=== PATIENT | female | born 1990 | race African-American/Black ===

== ENCOUNTER 2024-03-29 13:53 | Emergency (ER) | payer OTHER, SELFPAY ==
[2024-03-29 14:08] VITALS: BP 108/76; PULSE 112; O2SAT 96
--- NOTE | 2024-03-29 14:24 | ED.ALCOHOL ---
HPI - Alcohol General Chief Complaint: ETOH/Substance Use Stated Complaint: ETOH, FROM DETENTION PER EMS Time Seen by Provider: 03/29/24 14:02 Source: patient and EMS Mode of arrival: EMS Limitations: no limitations History of Present Illness ED Provider: Bishnu [facility] narrative: Patient is a 33-year-old female presenting to the ED from [facility] for possible intoxication. Patient attended a medical appointment today and when she [facility], appeared intoxicated. Patient stating that her bladder is full of whiskey on arrival to ED. She denies suicidal or homicidal ideation, auditory or visual hallucinations. Denies any physical complaints. She denies recent falls or other trauma. MD complaint: alcohol intoxication Previous visits for alcohol intoxication: No Recent trauma: No Associated symptoms: denies other symptoms Treatments prior to arrival: none Related Data Allergies Allergy/AdvReac Type Severity Reaction Status Date / Time Unable to Assess Allergy Unverified 03/29/24 14:28 Review of Systems Review of Systems: As per HPI. Yes all other systems are reviewed and are negative Constitutional: Constitutional: Reports as per HPI [facility] Social History Social History Advance Directives: No Advance Directives Information Provided: No Do you have a plan to hurt others: No Plan Physical Exam ED Vital Signs: Vital Signs - 24 hr 03/29/24 14:25 03/29/24 14:30 Temperature 98.0 F 98.0 F Pulse Rate 105 H 105 H Respiratory Rate 18 18 Blood Pressure 115/74 115/74 Pulse Oximetry 96 96 Oxygen Delivery Method Room Air Room Air BMI result Body Mass Index 30.9 Vital signs have been reviewed and appear to be correct. Blood pressure normal. Heart rate slightly tachycardic. Respiratory rate normal. Temperature normal. Oxygen saturation normal. Const General: cooperative, healthy appearing and no acute distress Orientation/consciousness: oriented to person, oriented to place, oriented to time and patient oriented x3 Limitations: no limitations HENMT Head: Yes normocephalic and Yes atraumatic Ears: external ears normal General nose exam: Normal external nose present Face and sinus: Yes face symmetric Mouth: oropharynx normal and moist mucous membranes Throat: Yes uvula midline Eyes Pupils: Equal, round and reactive pupils present Neck Neck: Yes normal visual inspection and Yes supple Resp Effort & Inspection: normal respiratory effort and able to speak in complete sentences Auscultation: clear to auscultation bilaterally Cardio Rate: regular rate Rhythm: regular rhythm Heart sounds: S1 normal heart sound present and S2 normal heart sound present GI Palpation (GI): Soft to palpation and nontender Auscultation: normoactive bowel sounds General: Yes no CVA tenderness Back/Spine/Pelvis Back: no CVA tenderness Skin General skin exam: elasticity normal and turgor normal Neuro General: oriented to person, oriented to place, oriented to time, patient oriented x3, gait normal, tone normal, moves all extremities, Normal light touch and pain sensation, no focal motor deficits, CN's II-XI intact bilaterally and deep tendon reflexes 2+ bilaterally Cranial nerves: Yes Equal, round and reactive pupils present Cognition (Neuro): normal cognition Motor exam (neuro): 5/5 motor strength present throughout Extrem General: Yes full ROM, Yes no pedal edema and Yes no calf tenderness Psych Mental Status: mental status grossly normal Affect: Hostile affect present Thought process: Normal thought process present Thought content: suicidality, no homicidality and no hallucinations Medical Decision Making Medical Decision Making [facility] Narrative: Patient is a 33-year-old female presenting to the ED from [facility] for possible intoxication. On exam patient is awake, A+Ox3, VS WNL, afebrile, normal neurological exam without focal deficits, physical exam findings as above. Given reported symptoms and physical exam findings, initial differential includes alcohol or drug intoxication. Do not suspect intracranial pathology as patient is awake, alert, oriented x 3, clinically sober and denies trauma. Urine drug screen negative. Ethanol negative. Patient stable for discharge. Return for new or worsening symptoms. Differential Diagnosis Differential Diagnoses: The differential diagnosis associated with the presentation includes As per [facility] Lab Data [facility] Lab Attestation statement: I reviewed the patient's lab results. as per [facility] Labs: Lab Results 03/29/24 03/29/24 Range/Units 14:22 14:23 Urine Color Yellow Urine Appearance Clear Urine pH 6.0 (5.0-9.0) Ur Specific [place] <= 1.005 (1.005-1.025) Urine Protein Negative (Neg-Trace) mg/dL Urine Glucose (UA) Negative (Negative) mg/dL Urine Ketones Negative (Negative) mg/dL Urine Blood Negative (Negative) Urine Nitrite Negative (Negative) Ur Leukocyte Esterase Negative (Negative) Urine Opiates Screen Not Detected (Not Detect) Ur Buprenorphine Scrn Not Detected (Not Detect) ng/mL Ur Oxycodone Screen Not Detected (Not Detect) ng/mL Urine Methadone Screen Not Detected (Not Detect) ng/mL Urine Fentanyl Screen Not Detected (Not Detect) Ur Barbiturates Screen Not Detected (Not Detect) Ur Phencyclidine Scrn Not Detected (Not Detect) Ur Amphetamines Screen Not Detected (Not Detect) U Benzodiazepines Scrn Not Detected (Not Detect) Urine Cocaine Screen Not Detected (Not Detect) U Marijuana (THC) Screen Not Detected (Not Detect) External Record Review External record reviewed: Inpatient record, Office record and Outpatient record Discharge Plan Discharge Clinical Impression: Alcoholic intoxication Patient Disposition: Still a Patient Instructions: Alcohol Use Disorder (ED) Additional Instructions: You were evaluated in the emergency department today for possible intoxication. Your ethanol level was positive. Return to the emergency department with new or concerning symptoms. Print Language: Polish
[2024-03-29 14:25] VITALS: BP 115/74; PULSE 105; RESP 18; TEMP 36.7; O2SAT 96; BMI 30.9
[2024-03-29 14:28] LABS: Appearance Urine Clear; Color Urine Yellow; Glucose Urine UA Negative (Negative); Leukocyte Esterase Urine Negative (Negative); Nitrite Urine Negative (Negative); Specific Gravity - Urine <= 1.005 (1.005-1.025); Urine Blood Negative (Negative); Urine Ketones Negative (Negative); Urine Protein Negative (Neg-Trace)
[2024-03-29 14:30] VITALS: BP 115/74; PULSE 105; RESP 18; TEMP 36.7; O2SAT 96
--- NOTE | 2024-03-29 14:33 | MHC.EDTECH ---
Patient is changed over into pod attire All belongings are in C6
[2024-03-29 14:38] LABS: Amphetamine Screen Urine Not Detected (Not Detect); Barbiturates, Urine Not Detected (Not Detect); Benzodiazepines Screen Urine Not Detected (Not Detect); Buprenorphine Scr Not Detected (Not Detect); Cannabinoid Screen Urine Not Detected (Not Detect); Cocaine Screen Urine Not Detected (Not Detect); Fentanyl, urine Not Detected (Not Detect); Methadone Screen, Urine Not Detected (Not Detect); Opiate Screen Urine Not Detected (Not Detect); Oxycodone Screen Urine Not Detected (Not Detect); Phencyclidine Screen Urine Not Detected (Not Detect)
[2024-03-29 16:04] LABS: Ethanol 154 mg/dL
[2024-03-29 16:34] VITALS: RESP 16
[2024-03-29 17:28] VITALS: BP 121/74; PULSE 99; RESP 16; TEMP 36.6
== END 2024-03-29 17:31 | disposition home or self-care (01) ==
PROVIDERS: Emergency Provider Emergency Medicine
DX: F10.129 Alcohol abuse with intoxication, unspecified (principal); Y90.9 Presence of alcohol in blood, level not specified; Z51.81 Encounter for therapeutic drug level monitoring; Z79.899 Other long term (current) drug therapy; Z71.41 Alcohol abuse counseling and surveillance of alcoholic
CPT/HCPCS: 36415; 80307; 81003; 99284

== ENCOUNTER 2024-04-15 21:13 | Emergency (ER) | payer OTHER, SELFPAY ==
[2024-04-15 21:24] VITALS: BP 122/73; PULSE 104; RESP 20; TEMP 36.7; O2SAT 97; BMI 33.3
[2024-04-15 21:52] LABS: Amphetamine Screen Urine Not Detected (Not Detect); Barbiturates, Urine Not Detected (Not Detect); Benzodiazepines Screen Urine Not Detected (Not Detect); Buprenorphine Scr Not Detected (Not Detect); Cannabinoid Screen Urine Not Detected (Not Detect); Cocaine Screen Urine Not Detected (Not Detect); Fentanyl, urine Not Detected (Not Detect); Methadone Screen, Urine Not Detected (Not Detect); Opiate Screen Urine Not Detected (Not Detect); Oxycodone Screen Urine Not Detected (Not Detect); Phencyclidine Screen Urine Not Detected (Not Detect)
--- NOTE | 2024-04-15 22:40 | ED_ITS ---
HPI - Medical Clearance General Chief complaint: Medical Clearance Stated complaint: seeking medical clearance Time Seen by Provider: 04/15/24 22:33 Source: patient Mode of arrival: ambulatory Limitations: no limitations History of Present Illness ED Provider: jessie BIRCH Narrative: Patient from [facility] comes here as still noted to be very sleepy according to staff patient has been difficult to manage patient's said that she had alcohol tired denied any substance abuse Related Information Allergies Allergy/AdvReac Type Severity Reaction Status Date / Time Unable to Assess Allergy Verified 04/15/24 21:27 Review of Systems 2 Review of Systems: Yes all other systems are reviewed and are negative [facility] Social History Social History Alcohol intake: current Smoked in Last 30 Days: Yes Use of substances other than those prescribed or required for medical reasons: No Advance Directives: No Physical Exam 2 Vital Signs: Vital Signs: Last Vital Signs Temp 98.6 F 04/16/24 02:52 Pulse 89 04/16/24 02:52 Resp 16 04/16/24 02:52 BP 108/56 L 04/16/24 02:52 Pulse Ox 98 04/16/24 02:52 O2 Del Method Room Air 04/16/24 02:52 BMI result Body Mass Index 33.3 Appearance: Alert. Oriented X3. No acute distress. Very sleepy arousable to verbal command Eyes: PERRLA, No Nystagmus ENT: Pharynx normal. Oral Mucosa moist Neck: Normal inspection. Neck supple. CVS: Normal heart rate and rhythm. Pulses normal. Respiratory: No respiratory distress. Equal air entry bilateral, no wheezing/rales/rhonchi Abdomen: Soft and nontender. Bowel sounds are present, no mass palpable, no CVA tenderness Skin: Skin warm and dry. Normal skin color. Normal skin turgor. Extremities: No lower extremity edema. No calf tenderness Neuro: Oriented X 3. No motor deficit. No sensory deficit.No cerebellar signs , cranial nerves II-XII intact Medical Decision Making Medical Decision Making [facility] Narrative: Patient's alcohol level was only 101 and U tox was negative will discharge patient back to [facility] Lab Data [facility] Lab Attestation statement: I reviewed the patient's lab results. 04/16/24 00:03 04/16/24 00:03 Labs: Lab Results 04/15/24 04/16/24 Range/Units 21:33 00:03 WBC 6.9 (4.8-10.8) X10*3/uL RBC 3.49 L (4.20-5.50) X10*6/uL Hgb 9.7 L (12.0-16.0) g/dl Hct 29.7 L (37.0-47.0) % MCV 85.1 (80.0-98.0) fL MCH 27.8 (27.0-33.0) pg MCHC 32.7 (31.0-35.0) g/dl RDW 18.8 H (11.0-16.0) % Plt Count 399 (160-400) X10*3/uL MPV 9.1 L (9.4-12.3) fL Immature Gran % (Auto) 0.1 (0.0-0.4) % Neut % (Auto) 37.9 L (45-73) % Lymph % (Auto) 54.6 H (20-40) % [place] % (Auto) 5.8 (2-11) % Eos % (Auto) 1.2 (0-4) % Baso % (Auto) 0.4 (0-2) % Lymph # (Auto) 3.8 (1.2-4.9) X10*3/uL [place] # (Auto) 0.4 (0.1-1.2) X10*3/uL Eos # (Auto) 0.1 (0.0-0.4) X10*3/uL Baso # (Auto) 0.0 (0.0-0.2) X10*3/uL Abs Immat Gran (auto) 0.01 (0.00-0.03) X10*3/uL Absolute Neuts (auto) 2.6 (2.0-8.3) x10*3/uL Absolute Nucleated RBC 0.000 (0.0-0.012) X10*3/uL Nucleated RBC % (auto) 0.0 (0.0-0.2) /100WBC Sodium 140 (135-145) mmol/L Potassium 4.0 (3.3-5.1) mmol/L Chloride 109 H (96-108) mmol/L Carbon Dioxide 21 L (22-29) mmol/L Anion Gap 14 (12-20) BUN 12 (9-16) mg/dL Creatinine 0.87 (0.5-1.4) mg/dL Estim Creat Clear Calc 101.3 Estimated GFR > 60 Random Glucose 124 H (60-115) mg/dL Calcium 9.1 (8.4-10.2) mg/dL Total Bilirubin 0.2 (0.0-1.0) mg/dL AST 19 (5-31) U/L ALT 13 (0-31) U/L Alkaline Phosphatase 87 (39-117) U/L Ammonia 44 (13-55) umol/L Total Protein 6.8 (6.5-8.0) g/dL Albumin 3.8 (3.5-5.0) g/dL Beta HCG, Quant < 2 mIU/mL Urine Opiates Screen Not Detected (Not Detect) Ur Buprenorphine Scrn Not Detected (Not Detect) ng/mL Ur Oxycodone Screen Not Detected (Not Detect) ng/mL Urine Methadone Screen Not Detected (Not Detect) ng/mL Urine Fentanyl Screen Not Detected (Not Detect) Ur Barbiturates Screen Not Detected (Not Detect) Ur Phencyclidine Scrn Not Detected (Not Detect) Ur Amphetamines Screen Not Detected (Not Detect) U Benzodiazepines Scrn Not Detected (Not Detect) Urine Cocaine Screen Not Detected (Not Detect) U Marijuana (THC) Screen Not Detected (Not Detect) Ethyl Alcohol 101 mg/dL Discharge Plan Discharge Clinical Impression: Alcohol use disorder Patient Disposition: Home, Self-Care Instructions: Abuse of Alcohol (ED) Additional Instructions: Stop drinking alcohol Your alcohol level was 101mg/dl and urine tox screen was negative Print Language: Citizen [place]
--- NOTE | 2024-04-15 23:32 | PC.NURSE ---
family law legal assistant attempted to contact the supervisor decorating from [facility] to gather additional information regarding the pt's reason for being there. Per previous RN, [facility] is refusing to [facility] patient back stating she needs a higher level of care . No answer, ESTEFANY left
[2024-04-16 00:10] LABS: MANUAL DIFF FLAG NO
[2024-04-16 00:16] LABS: Basophils Percent Auto 0.4 % (0-2); Eosinophils Absolute Auto 0.1 X10*3/uL (0.0-0.4); Eosinophils Percent Auto 1.2 % (0-4); Hematocrit 29.7 % (37.0-47.0); Hemoglobin 9.7 g/dl (12.0-16.0); Imm Gran Abs Auto 0.01 X10*3/uL (0.00-0.03); Imm Gran Pct Auto 0.1 % (0.0-0.4); Lymphocytes Absolute Auto 3.8 X10*3/uL (1.2-4.9); Lymphocytes Percent Auto 54.6 % (20-40); Mean Corpuscular HGB Conc 32.7 g/dl (31.0-35.0); Mean Corpuscular Hemoglobin 27.8 pg (27.0-33.0); Mean Corpuscular Volume 85.1 fL (80.0-98.0); Mean Platelet Volume 9.1 fL (9.4-12.3); Monocytes Absolute Auto 0.4 X10*3/uL (0.1-1.2); Monocytes Percent Auto 5.8 % (2-11); Neutrophils Absolute Auto 2.6 x10*3/uL (2.0-8.3); Neutrophils Percent Auto 37.9 % (45-73); Platelet Count 399 X10*3/uL (160-400); Red Blood Count 3.49 X10*6/uL (4.20-5.50); Red Cell Distribution Width 18.8 % (11.0-16.0); White Blood Count 6.9 X10*3/uL (4.8-10.8)
[2024-04-16 00:20] LABS: Ammonia 44 umol/L (13-55)
[2024-04-16 00:28] LABS: Alanine Aminotransferase 13 U/L (0-31); Albumin Level 3.8 g/dL (3.5-5.0); Alkaline Phosphatase 87 U/L (39-117); Anion Gap 14 (12-20); Aspartate Amino Transferase 19 U/L (5-31); Bilirubin Total 0.2 mg/dL (0.0-1.0); Blood Urea Nitrogen 12 mg/dL (9-16); Calcium 9.1 mg/dL (8.4-10.2); Carbon Dioxide 21 mmol/L (22-29); Chloride 109 mmol/L (96-108); Creatinine Clr Calc Pharmacy 101.3; Estimated Glomerular Filt Rate > 60; Glucose Random 124 mg/dL (60-115); Sodium 140 mmol/L (135-145); Total Protein 6.8 g/dL (6.5-8.0)
[2024-04-16 00:32] LABS: Ethanol 101 mg/dL
[2024-04-16 00:46] LABS: HCG Quantitative < 2 mIU/mL
[2024-04-16 02:52] VITALS: BP 108/56; PULSE 89; RESP 16; TEMP 37; O2SAT 98
--- NOTE | 2024-04-16 02:54 | PC.NURSE ---
pt sleeping, able to wake up and answer question appropriately, no distress at this time. Pt awaiting a ride home from facility
[2024-04-16 03:43] VITALS: BP 108/56; PULSE 89; RESP 16; TEMP 37; O2SAT 98
== END 2024-04-16 03:30 | disposition home or self-care (01) ==
PROVIDERS: Emergency Provider Internal Medicine
DX: F10.10 Alcohol abuse, uncomplicated (principal); Y90.5 Blood alcohol level of 100-119 mg/100 ml; Z51.81 Encounter for therapeutic drug level monitoring; Z79.899 Other long term (current) drug therapy
CPT/HCPCS: 36415; 80053; 80307; 82140; 84702; 85025; 99284

== ENCOUNTER 2024-05-18 06:24 | Emergency (ER) | payer OTHER, SELFPAY ==
--- NOTE | ~2024-05-18 | XR_ITS ---
EXAMINATION: XR HIP, LEFT CLINICAL INFORMATION: pain COMPARISON: None available. TECHNIQUE: Fundal radiograph of the pelvis and frontal and frog lateral radiographs of the left hip. FINDINGS: No fracture. Alignment is anatomic. Hip joint space is maintained. Soft tissues are unremarkable. XR/XR hip LT w PEL1V IMPRESSION: Unremarkable plain radiographs of the bony pelvis and left hip. Electronically signed by: Kemar Perez MD 05/18/2024 11:32 AM [facility]
--- NOTE | 2024-05-18 06:30 | ECG_ITS ---
Test Reason : CHEST Pain Blood Pressure : / mmHG Vent. Rate : 088 BPM Atrial Rate : 088 BPM P-R Int : 136 ms QRS Dur : 086 ms QT Int : 386 ms P-R-T Axes : 057 034 023 degrees QTc Int : 467 ms Normal sinus rhythm Normal ECG No previous ECGs available Referred By: Generic ED Physician Electronically Signed By:STEPHANIE COPE
[2024-05-18 06:37] VITALS: BP 138/94; PULSE 96; O2SAT 95; BMI 36.0
[2024-05-18 06:44] VITALS: BP 117/71; PULSE 88; RESP 16; TEMP 36.5; O2SAT 99
--- NOTE | 2024-05-18 06:56 | ED_ITS ---
HPI - General Adult General Chief complaint: Extremity Problem Stated complaint: HIP PAIN Time Seen by Provider: 05/18/24 06:55 Source: patient and EMS Mode of arrival: EMS Limitations: no limitations History of Present Illness ED Provider: Kylee Nunez PA-C HPI narrative: Patient is a 33 year old assigned female at with a history of chronic trochanteric bursitis of the left hip, alcohol dependency, cocaine abuse, DM, and shiczo-affective type schizophrenia presenting to the emergency department today with left hip pain. Patient states that she heard a popping sound in her hip when she was getting into her bed and now she is having sharp pain that radiates down her left leg. Patient states that she recently saw her PCP who started her on tramadol 50mg 3 times a day for this left hip pain but she has not gotten it yet. Patient denies any dizziness, lightheadedness, abdominal pain, nausea, vomiting, fever, chills, blurry vision, double vision, loss of vision, chest pain, difficulty breathing, shortness of breath, back pain, night sweats, pain with urination, increased urinary frequency, increased urinary urgency, blood in her urine or stool, syncope or a near syncopal episode, bowel incontinence, bladder incontinence, or any other complaints at this time. Relieving factors: immobilization Exacerbating factors: movement Associated symptoms: denies other symptoms Treatments prior to arrival: none Related Data Allergies Allergy/AdvReac Type Severity Reaction Status Date / Time aspirin AdvReac Anaphylaxis Verified 05/18/24 06:41 Review of Systems Constitutional: Constitutional: Reports no additional constitutional complaints, Denies chills, Denies fever(s) and Denies night sweats Eyes: Eyes: Reports no additional eye complaints, Denies blurry vision, Denies change in vision, Denies diplopia, Denies eye discharge, Denies loss of vision and Denies eye pain ENT: Denies dizziness Cardiovascular: Cardiovascular: Reports no additional cardiovascular complaints, Denies chest pain, Denies lightheadedness, Denies Loss of Consciousness and Denies dyspnea Respiratory: Respiratory: Reports no additional respiratory complaints and Denies dyspnea Gastrointestinal: Gastrointestinal: Reports no additional gastrointestinal complaints, Denies abdominal pain, Denies melena, Denies hematochezia, Denies change in bowel habits and Denies change in stool character Genitourinary: Genitourinary: Denies hematuria, Denies urinary frequency, Denies dysuria, Denies urinary incontinence, Denies urinary hesitancy and Denies urinary urgency Musculoskeletal: Musculoskeletal: Reports no additional musculoskeletal complaints, Denies numbness and Denies tingling Comments: left hip pain Neurologic: Denies dizziness, Denies loss of vision, Denies numbness and Denies tingling Psychiatric: Psychiatric: Reports no additional psychiatric complaints Endocrine: Endocrine: Reports no additional endocrine complaints Hematologic/Lymphatic: Hematologic/Lymphatic: Reports no additional hematologic/lymphatic complaints Allergic/Immunologic: Allergic/Immunologic: Reports no additional allergic/immunologic complaints [facility] Past Medical History Attestation statement: The following information was validated with the patient. Source: old records reviewed and nursing notes reviewed Social History Social History Alcohol intake: current Advance Directives: No Advance Directives Information Provided: Yes Do you have a plan to hurt others: No Plan Physical Exam ED Vital Signs: Vital Signs - 24 hr 05/18/24 06:44 05/18/24 08:11 05/18/24 10:34 Temperature 97.7 F 97.6 F 98 F Pulse Rate 88 87 85 Respiratory Rate 16 15 16 Blood Pressure 117/71 113/69 104/72 Pulse Oximetry 99 99 97 Oxygen Delivery Method Room Air Room Air Room Air 05/18/24 11:52 Temperature 97.2 F Pulse Rate 89 Respiratory Rate 16 Blood Pressure 114/61 Pulse Oximetry 99 Oxygen Delivery Method Room Air BMI result Body Mass Index 36.0 Const General: cooperative, no acute distress, alert and awake Nutritional Appearance: well nourished Orientation/consciousness: patient oriented x3 Limitations: no limitations [facility] Head: Yes normal to inspection and Yes atraumatic Ears: hearing grossly normal bilaterally and external ears normal General nose exam: Normal external nose present, no nasal discharge noted and no epistaxis Face and sinus: Yes normal facial exam, No abrasion and No laceration Mouth: Normal oral and palatal mucosa present, no drooling and no muffled voice Eyes General: appearance normal, both eyes and all related structures Periorbital: periorbital findings normal Eyelids: Yes eyelids normal Conjunctivae: conjunctivae normal Pupils: Equal, round and reactive pupils present EOM: EOMs intact bilaterally Neck Neck: Yes normal visual inspection, Yes full ROM and Yes no lymphadenopathy Chest Chest palpation & inspection: normal inspection of the chest Resp Effort & Inspection: normal respiratory effort and able to speak in complete sentences GI Inspection: Yes normal to inspection Neuro General: patient oriented x3 and moves all extremities Cranial nerves: Yes Equal, round and reactive pupils present Cognition (Neuro): normal cognition Extrem Other: left hip pain with attempted ambulation General: Yes normal to inspection and Yes capillary refill normal Psych Appearance: grossly normal Mental Status: mental status grossly normal Affect: normal affect Attitude: cooperative Thought process: Normal thought process present Thought content: Normal thought content present Insight: Good insight present (Psych) Medications Administered Discontinued Medications Generic Name Dose Route Start Last Admin Trade Name Freq PRN Reason Stop Dose Admin Methylprednisolone Sodium Succinate 60 mg 05/18/24 10:20 05/18/24 10:29 Methylprednisolone Sod Succ 125 Mg/2 Ml Vial IM 05/18/24 10:21 60 mg ONCE ONE Administration Tramadol HCl 50 mg 05/18/24 10:20 05/18/24 10:29 Tramadol Hcl 50 Mg Tablet PO 05/18/24 10:21 50 mg ONCE ONE Administration Medical Decision Making Medical Decision Making [facility] Narrative: Patient is a 33 year old assigned female at with a history of chronic trochanteric bursitis of the left hip, alcohol dependency, cocaine abuse, DM, and shiczo-affective type schizophrenia presenting to the emergency department today with left hip pain. Patient's physical exam was unremarkable. Patient's left hip x-ray showed no acute process. I explained my physical exam findings as well as all test results to the patient. I answered all questions asked by the patient. Patient received IM Solu-medrol and PO Tramadol which, upon re- evaluation, she stated it helped her symptoms significantly. I stressed the importance of the patient taking her medication as directed (either prescribed or as the over the counter packaging recommends). I stressed the importance of the patient following up with her primary care provider. I stressed the importance of the patient returning to the emergency department immediately if her symptoms were to worsen or if she were to develop any dizziness, shortness of breath, difficulty breathing, chest pain, blurry vision, loss of vision, nausea, vomiting, abdominal pain, fever, chills, back pain, or any other complaints. When we attempted to ambulate the patient with crutch assistance - she expressed concern that her pain was continuing. Patient sat back down and a CT of the abdomen/pelvis without contrast was ordered to further evaluate the left hip. Before the patient could have the scan performed, she left the department. Differential Diagnosis Differential Diagnoses: The differential diagnosis associated with the presentation includes Acute on chronic left hip pain Admission/Observation Consideration of admission/observation: Escalation of care including admission/observation considered Patient would have been admitted to the hospital had her work up had any findings where hospital admission was appropriate and her clinical presentation warranted hospital admission. Independent Interpretation I performed an independent interpretation of an: Plain X-Ray Interpretation: My interpretation is in agreement with the radiologist's impression of this imaging study. EXAMINATION: XR HIP, LEFT CLINICAL INFORMATION: pain COMPARISON: None available. TECHNIQUE: Fundal radiograph of the pelvis and frontal and frog lateral radiographs of the left hip. FINDINGS: No fracture. Alignment is anatomic. Hip joint space is maintained. Soft tissues are unremarkable. XR/XR hip LT w PEL1V IMPRESSION: Unremarkable plain radiographs of the bony pelvis and left hip. Electronically signed by: Kemar Perez MD 05/18/2024 11:32 AM EST Dictated By: Kemar Perez MD Signed By: Electronically signed by Kemar Perez MD 05/18/24 1132 Radiology Impression Discussion of test interpretation with radiology: I have reviewed the radiologist's reading. Independent Historian Clinical information obtained from an independent historian. History obtained from or confirmed by: EMS (EMS provided additional history and confirmed the history provided by the patient.) Chronic Conditions Patient?s care impacted by: Diabetes Discharge Plan Discharge Clinical Impression: Acute hip pain Patient Disposition: Home, Self-Care Instructions: Hip Pain (ED) Additional Instructions: Follow up with your primary care provider. Return to the emergency department immediately if your symptoms worsen or if you develop any dizziness, shortness of breath, difficulty breathing, chest pain, blurry vision, loss of vision, nausea, vomiting, abdominal pain, fever, chills, back pain, or any other complaints. Referrals: [facility] [Provider Group] (Call to establish and follow up with a primary care provider. If you already have a primary care provider, please follow up with them.) [facility], [facility] [Provider Group] (Call to establish and follow up with a primary care provider. If you already have a primary care provider, please follow up with them.) [facility] [Provider Group] (Call to establish and follow up with a primary care provider. If you already have a primary care provider, please follow up with them.) Interventions: ED Discharge Assessment Last Done: 05/18/24 11:52 Print Language: Tog[place]ese
[2024-05-18 08:11] VITALS: BP 113/69; PULSE 87; RESP 15; TEMP 36.4; O2SAT 99
[2024-05-18] MEDS: traMADoL HCL 50 MG TABLET PO (10:29)
[2024-05-18] MEDS: methylPREDNISolone Sod Succ 125 MG/2 ML VIAL 60 MG IM (10:29)
[2024-05-18 10:34] VITALS: BP 104/72; PULSE 85; RESP 16; TEMP 36.6; O2SAT 97
[2024-05-18 11:52] VITALS: BP 114/61; PULSE 89; RESP 16; TEMP 36.2; O2SAT 99
--- NOTE | 2024-05-18 12:14 | PC.NURSE ---
patient stated at d/c she cant bear weight, ed provider aware, new orders placed plus PT consult
== END 2024-05-18 13:35 | disposition home or self-care (01) ==
PROVIDERS: Emergency Provider Emergency Medicine Emergency Medical Services
DX: M25.552 Pain in left hip (principal)
CPT/HCPCS: 73502; 93005; 96372; 99284; J2919

== ENCOUNTER → 2024-05-18 06:30 | Outpatient (BNV) | payer OTHER, SELFPAY | PROVIDERS: Emergency Provider Emergency Medicine Emergency Medical Services; Visit Provider Internal Medicine | DX: R07.9 Chest pain, unspecified (principal) | CPT/HCPCS: 93010 ==

== ENCOUNTER 2024-12-06 08:51 | Emergency (ER) | payer OTHER, SELFPAY ==
--- NOTE | ~2024-12-06 | XR_ITS ---
EXAMINATION: XR HIP, LEFT CLINICAL INFORMATION: pain, injury COMPARISON: 05/18/2024. TECHNIQUE: AP pelvis, and 2 views of the left hip. FINDINGS: No fracture. Pelvis is intact. Alignment is anatomic. Hip joint space is maintained. Soft tissues are unremarkable. XR/XR hip LT w PEL1V IMPRESSION: Normal pelvis and left hip. Electronically signed by: Suresh Avalos MD 12/06/2024 09:38 AM EDT
[2024-12-06 09:04] VITALS: BP 117/79; PULSE 75; RESP 18; TEMP 36.6; O2SAT 99; BMI 41.6
--- NOTE | 2024-12-06 09:06 | ED_ITS ---
HPI - General Adult General Chief complaint: Extremity Injury, Lower Stated complaint: l hip pain Time Seen by Provider: 12/06/24 09:04 Source: patient and EMS Mode of arrival: EMS Limitations: no limitations History of Present Illness ED Provider: Kylee Nunez PA-C HPI narrative: Patient is a 34 year old assigned female at with a history of chronic trochanteric bursitis of the left hip, alcohol dependency, cocaine abuse, DM, and shiczo-affective type schizophrenia presenting to the emergency department today with left hip pain. Patient states that she has had left hip pain since 12/03/2024 for which tylenol is not helping. Patient denies any dizziness, lightheadedness, abdominal pain, nausea, vomiting, fever, chills, blurry vision, double vision, loss of vision, chest pain, difficulty breathing, shortness of breath, back pain, night sweats, pain with urination, increased urinary frequency, increased urinary urgency, blood in her urine or stool, syncope or a near syncopal episode, recent trauma or falls, bowel incontinence, bladder incontinence, or any other complaints at this time. Onset (ago): day(s) (3) Location: left (hip) Relieving factors: none Exacerbating factors: movement Associated symptoms: denies other symptoms Related Data Previous Rx's ?Medication ?Instructions ?Recorded prednisone 20 mg tablet 20 mg PO DAILY 7 days #7 tabs 12/06/24 Allergies Allergy/AdvReac Type Severity Reaction Status Date / Time aspirin AdvReac Severe Anaphylaxis Verified 12/06/24 09:10 Review of Systems Constitutional: Constitutional: Reports no additional constitutional complaints, Denies chills, Denies fever(s) and Denies night sweats Eyes: Eyes: Reports no additional eye complaints, Denies blurry vision, Denies change in vision, Denies diplopia, Denies eye discharge, Denies loss of vision and Denies eye pain ENT: Denies dizziness Cardiovascular: Cardiovascular: Reports no additional cardiovascular complaint s, Denies chest pain, Denies lightheadedness, Denies Loss of Consciousness and Denies dyspnea Respiratory: Respiratory: Reports no additional respiratory complaints and Denies dyspnea Gastrointestinal: Gastrointestinal: Reports no additional gastrointestinal complaints, Denies abdominal pain, Denies melena, Denies hematochezia, Denies change in bowel habits and Denies change in stool character Genitourinary: Genitourinary: Denies hematuria, Denies urinary frequency, Denies dysuria, Denies urinary incontinence, Denies urinary hesitancy and Denies urinary urgency Musculoskeletal: Musculoskeletal: Reports no additional musculoskeletal complaints, Denies numbness and Denies tingling Comments: left hip pain Neurologic: Denies dizziness, Denies loss of vision, Denies numbness and Denies tingling Psychiatric: Psychiatric: Reports no additional psychiatric complaints Endocrine: Endocrine: Reports no additional endocrine complaints Hematologic/Lymphatic: Hematologic/Lymphatic: Reports no additional hematologic/lymphatic complaints Allergic/Immunologic: Allergic/Immunologic: Reports no additional allergic/immunologic complaints [facility] Past Medical History Attestation statement: The following information was validated with the patient. Source: old records reviewed and nursing notes reviewed Social History Social History Alcohol intake: current Advance Directives: No Advance Directives Information Provided: No Do you have a plan to hurt others: No Plan Physical Exam ED Vital Signs: Vital Signs - 24 hr 12/06/24 09:04 12/06/24 11:20 Temperature 98 F Pulse Rate 75 87 Respiratory Rate 18 16 Blood Pressure 117/79 122/84 Pulse Oximetry 99 98 Oxygen Delivery Method Room Air Room Air BMI result Body Mass Index 41.6 Const General: cooperative, no acute distress, alert and awake Nutritional Appearance: well nourished Orientation/consciousness: patient oriented x3 HENMT Head: Yes normal to inspection and Yes atraumatic Ears: hearing grossly normal bilaterally and external ears normal General nose exam: Normal external nose present, no nasal discharge noted and no epistaxis Face and sinus: Yes normal facial exam, No abrasion and No laceration Mouth: Normal oral and palatal mucosa present, no drooling and no muffled voice Eyes General: appearance normal, both eyes and all related structures Periorbital: periorbital findings normal Eyelids: Yes eyelids normal Conjunctivae: conjunctivae normal Pupils: Equal, round and reactive pupils present EOM: EOMs intact bilaterally Neck Neck: Yes normal visual inspection, Yes full ROM and Yes no lymphadenopathy Resp Effort & Inspection: normal respiratory effort and able to speak in complete sentences Back/Spine/Pelvis Other: pain with left hip movement Neuro General: patient oriented x3, moves all extremities and CN's II-XI intact bilaterally Cranial nerves: Yes Equal, round and reactive pupils present Cognition (Neuro): normal cognition Extrem General: Yes normal to inspection, Yes full ROM and Yes capillary refill normal Psych Appearance: grossly normal Mental Status: mental status grossly normal Affect: normal affect Attitude: cooperative Thought process: Normal thought process present Thought content: Normal thought content present Insight: Good insight present (Psych) Medications Administered Discontinued Medications Generic Name Dose Route Start Last Admin Trade Name Conrad PRN Reason Stop Dose Admin Methylprednisolone Sodium Succinate 60 mg 12/06/24 09:08 12/06/24 09:51 Methylprednisolone Sod Succ 125 Mg Vial IM 12/06/24 09:09 60 mg ONCE ONE Administration Medical Decision Making Medical Decision Making [facility] Narrative: Patient is a 34 year old assigned female at with a history of chronic trochanteric bursitis of the left hip, alcohol dependency, cocaine abuse, DM, a nd shiczo-affective type schizophrenia presenting to the emergency department today with left hip pain. Patient's physical exam was as noted in the physical exam portion of this note. Patient's left hip / pelvis x-ray showed no acute process. I explained my physical exam findings as well as all test results to the patient. I answered all questions asked by the patient. Patient received IM Solu-medrol which, upon re-evaluation, she stated it helped her symptoms significantly. I stressed the importance of the patient taking her medication as directed (either prescribed or as the over the counter packaging recommends). I stressed the importance of the patient following up with her primary care provider and an orthopedic provider. I stressed the importance of the patient returning to the emergency department immediately if her symptoms were to worsen or if she were to develop any dizziness, shortness of breath, difficulty breathing, chest pain, blurry vision, loss of vision, nausea, vomiting, abdominal pain, fever, chills, back pain, or any other complaints. Patient verbalized agreement and understanding with this treatment plan and discharge. Differential Diagnosis Differential Diagnoses: The differential diagnosis associated with the presentation includes Hip bursitis Hip pain Hip strain Hip sprain Admission/Observation Consideration of admission/observation: Escalation of care including admission/observation considered Patient would have been admitted to the hospital had her work up had any findings where hospital admission was appropriate and her clinical presentation warranted hospital admission. Lab Data [facility] Lab Attestation statement: I reviewed the patient's lab results. My interpretation of these studies and their corresponding values is that they are grossly normal. Labs: Lab Results 12/06/24 Range/Units 09:54 Urine Color Yellow Urine Appearance Clear Urine pH 7.0 (5.0-9.0) Ur Specific [place] 1.020 (1.005-1.025) Urine Protein Negative (Neg-Trace) mg/dL Urine Glucose (UA) Negative (Negative) mg/dL Urine Ketones Trace (Negative) mg/dL Urine Blood Negative (Negative) Urine Nitrite Negative (Negative) Ur Leukocyte Esterase Negative (Negative) Independent Interpretation I performed an independent interpretation of an: Plain X-Ray (Hip / pelvis) Interpretation: My interpretation is in agreement with the radiologist's impression of this imaging study. EXAMINATION: XR HIP, LEFT CLINICAL INFORMATION: pain, injury COMPARISON: 05/18/2024. TECHNIQUE: AP pelvis, and 2 views of the left hip. FINDINGS: No fracture. Pelvis is intact. Alignment is anatomic. Hip joint space is maintained. Soft tissues are unremarkable. XR/XR hip LT w PEL1V IMPRESSION: Normal pelvis and left hip. Electronically signed by: Suresh Avalos MD 12/06/2024 09:38 AM EDT RP Dictated By: Suresh Avalos MD Signed By: Electronically signed by Suresh Avalos MD 12/06/24 0938 Radiology Impression Discussion of test interpretation with radiology: I have reviewed the radiologist's reading. Independent Historian Clinical information obtained from an independent historian. History obtained from or confirmed by: EMS (EMS provided additional history and confirmed the history provided by the patient.) Discharge Plan Discharge Clinical Impression: Bursitis of hip Patient Disposition: Home, Self-Care Instructions: Hip Bursitis (ED) Additional Instructions: Follow up with your primary care provider and an orthopedic team. Return to the emergency department immediately if your symptoms worsen or if you develop any numbness, tingling, dizziness, shortness of breath, difficulty breathing, chest pain, blurry vision, loss of vision, nausea, vomiting, abdominal pain, fever, chills, back pain, or any other complaints. Please see the information below about our Patient Portal. If you are not yet enrolled in the [facility] Patient Portal, you will receive an enrollment email invitation following your visit to any [facility] setting. You may also self-enroll in the Patient Portal by visiting our website: [email or web address] The following information is required to access the Patient Portal: - Your [facility] Medical Record Number - Your personal home email address (must match what is in your electronic medical record, Registration staff can assist with this) - Name - Date of Capabilities of the Patient Portal: - Message some providers - View upcoming appointments - Access your health summary, medical history, and visit history - View current conditions and allergies - View procedure and lab results - View your medications, including guidelines, side effects, and precautions - Complete pre-appointment questionnaires requested by your provider - Ready summary reports of your office visits and procedures To access the Patient Portal Mobile [employer], follow these directions: - Search [employer] in the [employer] Store or [email or web address] Store - Download the [employer] - Search for [facility] - Enter your login/password Prescriptions: New prednisone 20 mg tablet 20 mg PO DAILY 7 Days Qty: 7 0RF Referrals: [facility] Family Medicine [Provider Group] (Call to establish and follow up with a primary care provider. If you already have a primary care provider, please follow up with them.) [facility] Primary Care, [place] [Provider Group] (Call to establish and follow up with a primary care provider. If you already have a primary care provider, please follow up with them.) [facility] Care, [place] [Provider Group] (Call to establish and follow up with a primary care provider. If you already have a primary care provider, please follow up with them.) [facility] Primary Care, [facility] [Provider Group] (Call to establish and follow up with a primary care provider. If you already have a primary care provider, please follow up with them.) [facility] Primary [facility] [Provider Group] (Call to establish and follow up with a primary care provider. If you already have a primary care provider, please follow up with them.) [facility] Orthopedic Surgeons [Provider Group] (Call to establish and follow up with the orthopedic team. ) Stand Alone Forms: Work/School Release Print Language: Estonian
[2024-12-06 10:02] LABS: Appearance Urine Clear; Color Urine Yellow; Glucose Urine UA Negative (Negative); Leukocyte Esterase Urine Negative (Negative); Nitrite Urine Negative (Negative); Urine Blood Negative (Negative); Urine Ketones Trace mg/dL (Negative); Urine Protein Negative (Neg-Trace)
--- OUTSIDE RECORDS SUMMARY | 2024-12-06 10:52 | XMS_ITS | Encounter Summary ---
Author Organization [facility] Address [address] [place] [address] Care Team Providers Care Hat Lacer Name Role Phone Kanchan Gastelum Primary Care Provider [phone] Encounter Details Date Type Department Care Team (Late st Contact Info) Description 07/22/2024 Lab Requisition [facility] - Main Lab [address] [place] [address] [place] [id number] Social History Tobacco Use Types Packs/Day Years Used Date Smoking Tobacco: Never Assessed Comments Unknown Sex and Gender Information Value Date Recorded Sex Assigned at Not on file Legal Sex Female 9:38 AM EST Gender Identity Not on file Sexual Orientation Not on file documented as of this encounter Plan of Treatment Not on file documented as of this encounter Visit Diagnoses Not on filedocumented in this encounter Care Teams Hat Lacer Relationship Specialty Start Date End Date Kanchan Gastelum [address] [place] [address] PCP - General Family Medicine 07/22/24 documented as of this encounter
[2024-12-06 11:20] VITALS: BP 122/84; PULSE 87; RESP 16; O2SAT 98
[2024-12-06 12:32] VITALS: BP 122/84; PULSE 87; RESP 16; TEMP -17.7; TEMP 0; O2SAT 98
== END 2024-12-06 12:33 | disposition home or self-care (01) ==
PROVIDERS: Physician Assistant Medical; Emergency Provider Emergency Medicine
DX: M70.72 Other bursitis of hip, left hip (principal); Y93.9 Activity, unspecified; M25.552 Pain in left hip
CPT/HCPCS: 73502; 81003; 96372; 99283; 99284; J2919

== ENCOUNTER → 2024-12-06 09:08 | Outpatient (BNV) | payer OTHER, SELFPAY | PROVIDERS: Visit Provider Radiology Diagnostic Radiology | DX: M25.552 Pain in left hip (principal) | CPT/HCPCS: 73502 ==

== ENCOUNTER 2024-12-17 11:21 | Inpatient (IN) | payer OTHER, SELFPAY ==
[2024-12-17 11:38] VITALS: BP 131/79; BP 162/72; PULSE 115; PULSE 118; RESP 16; TEMP 36.8; O2SAT 100; O2SAT 96; BMI 35.6
--- NOTE | 2024-12-17 11:46 | MHC.EDTECH ---
pt arrives to pod with one small bag of clothing located in [address]. The rest of patient belongings are locked up in old [facility].
--- NOTE | 2024-12-17 11:49 | ECG_ITS ---
Test Reason : CHECK FOR PROLONG QT Blood Pressure : */* mmHG Vent. Rate : 95 BPM Atrial Rate : 95 BPM P-R Int : 132 ms QRS Dur : 86 ms QT Int : 350 ms P-R-T Axes : 65 47 12 degrees QTcB Int : 439 ms Normal sinus rhythm Normal ECG When compared with ECG of 18-May-2024 06:31, No significant change was found Referred By: Aneudy Bautista Electronically Signed By: STEPHANIE COPE
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
[2024-12-17 13:15] LABS: Appearance Urine Clear; Glucose Urine UA Negative (Negative); PH 8.5 (5.0-9.0); Specific Gravity - Urine 1.015 (1.005-1.025); UMIC TRIGGER UA YES
[2024-12-17 13:19] LABS: UPreg QC Valid YES
[2024-12-17 13:21] LABS: Cannabinoid Screen Urine Not Detected (Not Detect)
--- NOTE | 2024-12-17 15:03 | PC.NURSE ---
med rec completed with medication packages that pt brought to ED. Meds inventoried and sent to pharmacy.
--- NOTE | 2024-12-17 18:39 | PC.NURSE ---
Addendum entered by Ruthy Gary 12/17/24 18:40: Walter HADLEY notified by tech Original Note: pt refused labs
--- NOTE | 2024-12-17 19:17 | PC.NURSE ---
uon arrival to unit patient was seen returning from bathroom with headcovering which client stated was worn for [facility] reasons. per staff security reviewed (samina) and charge approved client (sami) for client to wear head covering. patient appears relaxed and not in any distress.
[2024-12-17 20:00] VITALS: BP 130/72; PULSE 79; RESP 20; TEMP 36.9; O2SAT 97
[2024-12-17 20:21] LABS: MANUAL DIFF FLAG NO
[2024-12-17 20:25] LABS: Hematocrit 31.9 % (37.0-47.0); Hemoglobin 10.7 g/dl (12.0-16.0); Imm Gran Abs Auto 0.02 X10*3/uL (0.00-0.03); Imm Gran Pct Auto 0.2 % (0.0-0.4); Lymphocytes Absolute Auto 5.0 X10*3/uL (1.2-4.9); Mean Corpuscular HGB Conc 33.5 g/dl (31.0-35.0); Mean Corpuscular Hemoglobin 27.8 pg (27.0-33.0); Mean Corpuscular Volume 82.9 fL (80.0-98.0); NRBC Abs Auto 0.000 X10*3/uL (0.0-0.012); NRBC Pct Auto 0.0 /100WBC (0.0-0.2); Platelet Count 478 X10*3/uL (160-400); Red Blood Count 3.85 X10*6/uL (4.20-5.50); White Blood Count 10.4 X10*3/uL (4.8-10.8)
[2024-12-17 20:41] LABS: Acetaminophen LAB < 3 mcg/mL (<30); Alanine Aminotransferase 11 U/L (0-31); Albumin Level 4.0 g/dL (3.5-5.0); Alkaline Phosphatase 101 U/L (39-117); Anion Gap 15 (12-20); Aspartate Amino Transferase 16 U/L (5-31); Blood Urea Nitrogen 11 mg/dL (9-16); Calcium 9.0 mg/dL (8.4-10.2); Carbon Dioxide 23 mmol/L (22-29); Chloride 104 mmol/L (96-108); Creatinine Clr Calc Pharmacy 101.7; Estimated Glomerular Filt Rate > 60; Potassium 3.9 mmol/L (3.3-5.1); Salicylate < 5.0 mg/dL (15-30); Sodium 138 mmol/L (135-145); Total Protein 7.0 g/dL (6.5-8.0)
[2024-12-17 23:02] VITALS: BP 130/72
--- NOTE | 2024-12-18 07:46 | PC.NURSE ---
Assumed care of patient at 0645, patient appears to be in no apparent distress this am, sleeping, respirations even and unlabored. Continue plan of care for IPLOC
--- NOTE | 2024-12-18 10:53 | PC.NURSE ---
pt remains asleep, occasionally shifting around in bed, respirations even and unlabored, no apparent distress this am. Holding on morning medications to avoid waking patient and agitating her
--- NOTE | 2024-12-18 12:01 | PC.NURSE ---
This Rn attempted to give patient her daily medications, pt refused and rolled back over to sleep
[2024-12-18 14:00] VITALS: RESP 18
[2024-12-18 19:46] VITALS: BP 109/48; PULSE 89; RESP 18; TEMP 36.3; O2SAT 100
[2024-12-18 21:42] VITALS: BP 109/48
[2024-12-19 06:05] VITALS: RESP 16
--- NOTE | 2024-12-19 10:46 | PC.NURSE ---
patient continues to rest w/ eyes closed in no apparent distress. delay in medication administration d/t patient sleeping. no sob/wob noted. respirations even/unlabored. lights dimmed to promote comfort. plan of care ongoing.
[2024-12-19 14:43] VITALS: BMI 35.8
[2024-12-19 14:44] VITALS: BP 133/78; PULSE 107; RESP 15; TEMP 36.6; O2SAT 100
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
[2024-12-19] MEDS: Magnesium Hydrox/Alum Hydrox 30 ML ORAL.SUSP PO (19:13)
[2024-12-19 19:43] VITALS: BP 153/78; PULSE 118; TEMP 36.4; O2SAT 97
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
[2024-12-20 08:00] VITALS: BP 112/61; PULSE 91; RESP 16; TEMP 36.6; O2SAT 92
[2024-12-20] MEDS: Tiotropium Bromide 2.5 mcg 1 PUFF/2.5 MCG MIST.INHAL 2 PUFF INHALE (09:31)
[2024-12-20] MEDS: Fluticasone/Vilanterol 200/25 BLST.W.DEV 1 PUFF INHALE (09:31)
--- NOTE | 2024-12-20 10:54 | PC.NURSE ---
unable to administer metformin, lyrica and flonase as scheduled for 9am due to scan errors. Contacted pharmacy and awaiting further instruction
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
[2024-12-20 19:43] VITALS: BP 118/75; PULSE 103; TEMP 36.4; O2SAT 97
[2024-12-20 19:58] LABS: Glucose, Whole Blood 224 mg/dL (60-115)
[2024-12-21 08:00] VITALS: BP 111/62; PULSE 95; RESP 16; TEMP 36.6; O2SAT 95
[2024-12-21 08:13] LABS: Hemoglobin A1C 148.0437 umol/L; Total Hemoglobin (HGBA1C) 2839.5101 umol/L
[2024-12-21 08:20] LABS: Cholesterol 292 mg/dL (<200); HDL Cholesterol 38 mg/dL (>40); Magnesium 1.8 mg/dL (1.6-2.6); Triglycerides 396 mg/dL (<150)
[2024-12-21 08:30] VITALS: BP 111/62
[2024-12-21] MEDS: Fluticasone/Vilanterol 200/25 BLST.W.DEV 1 PUFF INHALE (08:33)
[2024-12-21] MEDS: Tiotropium Bromide 2.5 mcg 1 PUFF/2.5 MCG MIST.INHAL 2 PUFF INHALE (08:33)
[2024-12-21 08:38] LABS: Free T4 (Free Thyroxine) 0.83 ng/dL (0.71-1.85); Thyroid Stimulating Hormone 1.31 uIU/mL (0.32-4.0)
[2024-12-21 08:48] LABS: Folate 5.5 ng/mL (> or = 4.0); Vitamin B12 664 pg/mL (200-900)
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
[2024-12-21 15:00] VITALS: BP 154/79
[2024-12-21 20:00] VITALS: BP 145/82; PULSE 101; RESP 16; TEMP 36.4; O2SAT 96
[2024-12-21 21:04] VITALS: BP 145/82
[2024-12-22 07:00] VITALS: BMI 37.4
[2024-12-22 08:00] VITALS: BP 106/60; PULSE 86; RESP 16; TEMP 36.4; O2SAT 99
[2024-12-22] MEDS: Tiotropium Bromide 2.5 mcg 1 PUFF/2.5 MCG MIST.INHAL 2 PUFF INHALE (08:51)
[2024-12-22] MEDS: Fluticasone/Vilanterol 200/25 BLST.W.DEV 1 PUFF INHALE (08:51)
[2024-12-22 08:53] VITALS: BP 106/60
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
[2024-12-22 20:00] VITALS: BP 135/88; PULSE 101; TEMP 36.7; O2SAT 98
[2024-12-22 21:14] VITALS: BP 135/88
[2024-12-23 08:00] VITALS: BP 111/67; PULSE 82; RESP 16; TEMP 36.4; O2SAT 100
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
[2024-12-23] MEDS: Tiotropium Bromide 2.5 mcg 1 PUFF/2.5 MCG MIST.INHAL 2 PUFF INHALE (10:15)
[2024-12-23] MEDS: Fluticasone/Vilanterol 200/25 BLST.W.DEV 1 PUFF INHALE (10:15)
[2024-12-23 10:16] VITALS: BP 111/67
[2024-12-23 15:57] VITALS: BP 110/70
[2024-12-23 20:00] VITALS: BP 135/85; PULSE 92; TEMP 36.3; O2SAT 100
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
[2024-12-24 08:10] VITALS: BP 121/72; PULSE 85; RESP 16; TEMP 36.3; O2SAT 96
[2024-12-24 08:31] LABS: Glucose, Whole Blood 260 mg/dL (60-115)
[2024-12-24] MEDS: Fluticasone/Vilanterol 200/25 BLST.W.DEV 1 PUFF INHALE (08:45)
[2024-12-24] MEDS: Tiotropium Bromide 2.5 mcg 1 PUFF/2.5 MCG MIST.INHAL 2 PUFF INHALE (08:45)
[2024-12-24 09:21] LABS: Bacterial Vaginosis PCR POSITIVE (Negative); Candida Group PCR NOT DETECTED (Not Detect); Candida glab krusei PCR NOT DETECTED (Not Detect); Trichomonas vaginalis PCR NOT DETECTED (Not Detect)
[2024-12-24 20:00] VITALS: BP 143/81; PULSE 106; TEMP 36.4; O2SAT 98
[2024-12-25 08:00] VITALS: BP 158/92; PULSE 114; RESP 16; TEMP 36.4; O2SAT 97
[2024-12-25 08:39] LABS: Glucose, Whole Blood 271 mg/dL (60-115)
[2024-12-25] MEDS: Tiotropium Bromide 2.5 mcg 1 PUFF/2.5 MCG MIST.INHAL 2 PUFF INHALE (08:58)
[2024-12-25] MEDS: Fluticasone/Vilanterol 200/25 BLST.W.DEV 1 PUFF INHALE (08:58)
[2024-12-25 08:59] VITALS: BP 158/92
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
[2024-12-25 15:54] VITALS: BP 140/70
[2024-12-25 20:00] VITALS: BP 123/65; PULSE 91; RESP 16; TEMP 36.3; O2SAT 99
[2024-12-25 21:38] LABS: Glucose, Whole Blood 327 mg/dL (60-115)
[2024-12-25 21:50] VITALS: BP 123/65
[2024-12-26 07:49] LABS: Glucose, Whole Blood 275 mg/dL (60-115)
[2024-12-26 08:00] VITALS: BP 138/77; PULSE 83; RESP 16; TEMP 36.4; O2SAT 96
[2024-12-26 08:02] LABS: Creatinine Clr Calc Pharmacy 120.6; Estimated Glomerular Filt Rate > 60
[2024-12-26] MEDS: Fluticasone/Vilanterol 200/25 BLST.W.DEV 1 PUFF INHALE (09:08)
[2024-12-26] MEDS: Tiotropium Bromide 2.5 mcg 1 PUFF/2.5 MCG MIST.INHAL 2 PUFF INHALE (09:08)
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
--- NOTE | 2024-12-26 12:58 | PM.EVENT ---
Event Note Date of Service: 12/26/24 Event Note: Asked to see patient for increased blood sugars, upon review noted to be 275, 327, 271, 260, in 224. Recent A1c was 6.9. Patient declined to speak with this typewriter assembly and parts inspector. We will increase metformin to 500 mg twice daily. Patient will need follow up with her primary care. Patient noted to have elevated cholesterol. Patient will need to follow up with her PCP upon discharge. Time Spent With Patient Time: Total time managing care of this patient today ____ minutes.
[2024-12-26 18:43] VITALS: BP 137/82
--- NOTE | 2024-12-26 19:09 | P.EN_ITS ---
Event Note Date of Service: 12/26/24 Event Note: COnsult received this evening for hyperglyceia. BG listed at 275 but after speaking with pt's nurse, BG was 479. Pt is otherwise asymptomatic, currently on Flagyl for BV. Pt is known diabetic and is on metformin but will add SSI for now and a one time dose of 14 units Lispro. AIC on 12/21 6.9. WIll ask for repeat UA. Labs also ordered to include CMP, CBC, ESR, CRP. If labs return WNL, will start pt on 10 Lantus tonight. Pt states she has been on insulin prior. Per nursing, pt is not always compliant with diet so ordered nutritional consult as well. This telegraphic typewriter operator chief interviewed pt and pt denies any obvious infection including open wounds, joint pain or warmth, dysuria or productive cough. Pt does have chronic OA. Pt also denies chest pain, polyuria, polydipsia and polyphagia. Reviewed plan above with nursing as well. Asked that nursing tiger text this telegraphic typewriter operator chief with any concerns or questions. 2330: Patient's blood sugar down to 310 and patient did start Lantus 10 units at HS. UA is negative for any UTI. Patient will continue to be monitored with blood glucose levels a.c. and HS and follow sliding scale insulin coverage. Hospitalist group will continue to follow. Time Spent With Patient Time: Total time managing care of this patient today ____ minutes.
[2024-12-26 19:51] LABS: Glucose, Whole Blood 479 mg/dL (60-115)
--- NOTE | 2024-12-26 19:52 | PC.NURSE ---
Patient POC 479, YADIRA Ziegler aware labs to be drawn. Patient will also have UA.
[2024-12-26 20:00] VITALS: BP 137/82; PULSE 115; RESP 16; TEMP 36.3; O2SAT 94
[2024-12-26 20:41] LABS: MANUAL DIFF FLAG NO
[2024-12-26 20:43] LABS: Hematocrit 31.7 % (37.0-47.0); Hemoglobin 10.4 g/dl (12.0-16.0); Imm Gran Abs Auto 0.01 X10*3/uL (0.00-0.03); Imm Gran Pct Auto 0.2 % (0.0-0.4); Lymphocytes Absolute Auto 2.1 X10*3/uL (1.2-4.9); Mean Corpuscular HGB Conc 32.8 g/dl (31.0-35.0); Mean Corpuscular Hemoglobin 28.3 pg (27.0-33.0); Mean Corpuscular Volume 86.1 fL (80.0-98.0); NRBC Abs Auto 0.000 X10*3/uL (0.0-0.012); NRBC Pct Auto 0.0 /100WBC (0.0-0.2); Platelet Count 300 X10*3/uL (160-400); Red Blood Count 3.68 X10*6/uL (4.20-5.50); White Blood Count 4.6 X10*3/uL (4.8-10.8)
[2024-12-26 21:01] LABS: Alanine Aminotransferase 39 U/L (0-31); Albumin Level 4.0 g/dL (3.5-5.0); Alkaline Phosphatase 196 U/L (39-117); Anion Gap 17 (12-20); Aspartate Amino Transferase 24 U/L (5-31); Blood Urea Nitrogen 8 mg/dL (9-16); Calcium 8.7 mg/dL (8.4-10.2); Carbon Dioxide 19 mmol/L (22-29); Chloride 102 mmol/L (96-108); Creatinine Clr Calc Pharmacy 101.0; Estimated Glomerular Filt Rate > 60; Potassium 4.4 mmol/L (3.3-5.1); Sodium 134 mmol/L (135-145); Total Protein 7.4 g/dL (6.5-8.0)
[2024-12-26 21:49] LABS: Appearance Urine Clear; Glucose Urine UA >=1000 mg/dL (Negative); PH 5.5 (5.0-9.0); Specific Gravity - Urine >= 1.030 (1.005-1.025); UMIC TRIGGER UA YES
[2024-12-26 22:32] LABS: Glucose, Whole Blood 310 mg/dL (60-115)
[2024-12-26] MEDS: Insulin Glargine,Hum.rec.anlog 100 UNIT/ML 10 ML VIAL 10 UNIT SUBCUT (22:56)
[2024-12-27 08:00] VITALS: BP 116/63; PULSE 93; RESP 16; TEMP 36.8; O2SAT 98
[2024-12-27 08:18] LABS: Glucose, Whole Blood 215 mg/dL (60-115)
[2024-12-27] MEDS: Tiotropium Bromide 2.5 mcg 1 PUFF/2.5 MCG MIST.INHAL 2 PUFF INHALE (08:28)
[2024-12-27] MEDS: Fluticasone/Vilanterol 200/25 BLST.W.DEV 1 PUFF INHALE (08:28)
[2024-12-27 08:35] LABS: Anion Gap 11 (12-20); Blood Urea Nitrogen 6 mg/dL (9-16); Calcium 8.3 mg/dL (8.4-10.2); Carbon Dioxide 24 mmol/L (22-29); Chloride 106 mmol/L (96-108); Creatinine Clr Calc Pharmacy 130.8; Estimated Glomerular Filt Rate > 60; Potassium 4.1 mmol/L (3.3-5.1); Sodium 137 mmol/L (135-145)
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
[2024-12-27 12:19] LABS: Glucose, Whole Blood 254 mg/dL (60-115)
[2024-12-27] MEDS: Albuterol Sulfate 90 MCG 8 GM INHALER 2 PUFF INHALE (16:07)
[2024-12-27 16:09] VITALS: BP 129/84
[2024-12-27 17:11] LABS: Glucose, Whole Blood 255 mg/dL (60-115)
[2024-12-27 20:00] VITALS: BP 127/72; PULSE 88; RESP 16; TEMP 37.1; O2SAT 99
[2024-12-27 21:08] LABS: Glucose, Whole Blood 243 mg/dL (60-115)
[2024-12-27] MEDS: Divalproex Sodium ER 250 MG TAB.ER.24H 750 MG PO (21:23)
[2024-12-27] MEDS: Insulin Glargine,Hum.rec.anlog 100 UNIT/ML 10 ML VIAL 10 UNIT SUBCUT (21:27)
[2024-12-28 08:00] VITALS: BP 136/86; PULSE 103; RESP 16; TEMP 36.3
[2024-12-28 08:22] LABS: Glucose, Whole Blood 148 mg/dL (60-115)
[2024-12-28 08:45] VITALS: BP 136/86
[2024-12-28] MEDS: Divalproex Sodium ER 250 MG TAB.ER.24H 750 MG PO ×2 (08:45→22:10)
[2024-12-28] MEDS: Fluticasone/Vilanterol 200/25 BLST.W.DEV 1 PUFF INHALE (08:51)
[2024-12-28] MEDS: Albuterol Sulfate 90 MCG 8 GM INHALER 2 PUFF INHALE (08:51)
[2024-12-28] MEDS: Tiotropium Bromide 2.5 mcg 1 PUFF/2.5 MCG MIST.INHAL 2 PUFF INHALE (08:51)
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
[2024-12-28 15:00] VITALS: BP 140/84
[2024-12-28 17:05] LABS: Glucose, Whole Blood 380 mg/dL (60-115)
[2024-12-28 21:17] LABS: Glucose, Whole Blood 461 mg/dL (60-115)
[2024-12-28] MEDS: Insulin Glargine,Hum.rec.anlog 100 UNIT/ML 10 ML VIAL 10 UNIT SUBCUT (22:20)
[2024-12-29 07:00] VITALS: BMI 38.0
[2024-12-29 08:00] VITALS: BP 114/72; PULSE 90; RESP 16; TEMP 36.3; O2SAT 96
[2024-12-29 08:30] LABS: Glucose, Whole Blood 152 mg/dL (60-115)
[2024-12-29] MEDS: Tiotropium Bromide 2.5 mcg 1 PUFF/2.5 MCG MIST.INHAL 2 PUFF INHALE (09:14)
[2024-12-29] MEDS: Fluticasone/Vilanterol 200/25 BLST.W.DEV 1 PUFF INHALE (09:15)
[2024-12-29] MEDS: Divalproex Sodium ER 250 MG TAB.ER.24H 750 MG PO ×2 (09:15→21:33)
[2024-12-29] MEDS: Albuterol Sulfate 90 MCG 8 GM INHALER 2 PUFF INHALE (09:20)
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
[2024-12-29 12:24] LABS: Glucose, Whole Blood 289 mg/dL (60-115)
[2024-12-29 14:28] VITALS: BP 122/72
[2024-12-29 17:11] LABS: Glucose, Whole Blood 277 mg/dL (60-115)
[2024-12-29 18:39] VITALS: BP 132/78
[2024-12-29 20:00] VITALS: BP 131/74; PULSE 105; TEMP 36.9
[2024-12-29 21:27] LABS: Glucose, Whole Blood 249 mg/dL (60-115)
[2024-12-29] MEDS: Insulin Glargine,Hum.rec.anlog 100 UNIT/ML 10 ML VIAL 10 UNIT SUBCUT (21:39)
[2024-12-30 07:47] LABS: Hematocrit 30.8 % (37.0-47.0); Hemoglobin 10.0 g/dl (12.0-16.0); Imm Gran Abs Auto 0.01 X10*3/uL (0.00-0.03); Imm Gran Pct Auto 0.2 % (0.0-0.4); Lymphocytes Absolute Auto 2.5 X10*3/uL (1.2-4.9); MANUAL DIFF FLAG SCAN; Mean Corpuscular HGB Conc 32.5 g/dl (31.0-35.0); Mean Corpuscular Hemoglobin 27.6 pg (27.0-33.0); Mean Corpuscular Volume 85.1 fL (80.0-98.0); NRBC Abs Auto 0.000 X10*3/uL (0.0-0.012); NRBC Pct Auto 0.0 /100WBC (0.0-0.2); Platelet Count 309 X10*3/uL (160-400); Red Blood Count 3.62 X10*6/uL (4.20-5.50); SCAN SMEAR FLAG 1; White Blood Count 4.7 X10*3/uL (4.8-10.8)
[2024-12-30 07:56] LABS: Alanine Aminotransferase 27 U/L (0-31); Albumin Level 3.8 g/dL (3.5-5.0); Alkaline Phosphatase 113 U/L (39-117); Anion Gap 12 (12-20); Aspartate Amino Transferase 21 U/L (5-31); Blood Urea Nitrogen 7 mg/dL (9-16); Calcium 9.1 mg/dL (8.4-10.2); Carbon Dioxide 26 mmol/L (22-29); Chloride 104 mmol/L (96-108); Creatinine Clr Calc Pharmacy 117.1; Estimated Glomerular Filt Rate > 60; Potassium 4.2 mmol/L (3.3-5.1); Sodium 138 mmol/L (135-145); Total Protein 6.8 g/dL (6.5-8.0)
[2024-12-30 07:59] LABS: Glucose, Whole Blood 159 mg/dL (60-115)
[2024-12-30 08:11] VITALS: BP 110/60; PULSE 80; RESP 16; TEMP 36.7; O2SAT 99
[2024-12-30] MEDS: Fluticasone/Vilanterol 200/25 BLST.W.DEV 1 PUFF INHALE (08:34)
[2024-12-30] MEDS: Tiotropium Bromide 2.5 mcg 1 PUFF/2.5 MCG MIST.INHAL 2 PUFF INHALE (08:35)
[2024-12-30] MEDS: Divalproex Sodium ER 250 MG TAB.ER.24H 750 MG PO (08:35)
[2024-12-30] MEDS: Albuterol Sulfate 90 MCG 8 GM INHALER 2 PUFF INHALE (08:35)
--- NOTE | 2024-12-30 10:36 | P.DS_ITS ---
DS: Providers Provider Date of admission: 12/19/24 13:53 Primary care physician: Unknown Physician Consults: 12/26/24 12:10 Consult to Hospitalist Routine Comment: Consulting Provider: [facility] Hospitalists Reason For Exam: Metformin pt. High POC's, ?Insulin needed DS: Diagnosis Discharge Diagnosis (1) Depression: Status: Acute (2) Schizoaffective disorder: Status: Acute (3) Substance abuse in remission: Status: Acute DS: Medications Discharge Medications Home Medications: Previous Rx's ?Medication ?Instructions ?Recorded acetaminophen 325 mg tablet 650 mg (2 x 325 mg) PO BID PRN 12/29/24 Pain (Scale Score 1-3) #120 tabs albuterol sulfate 90 mcg/actuation 2 puff inhalation R Q4H PRN wheeze 12/29/24 aerosol inhaler (Ventolin HFA) #1 inhaler atorvastatin 20 mg tablet 20 mg PO BEDTIME #30 tabs baclofen 10 mg tablet 10 mg PO TID PRN Muscle Spas m #90 12/29/24 tabs blood-glucose meter (Advanced #1 ea 12/29/24 All-in-One Glucose Meter kit) buspirone 30 mg tablet 15 mg (1/2 x 30 mg) PO TID # 45 tabs 12/29/24 clonidine HCl 0.2 mg tablet 0.2 mg PO TID PRN Anxiety #90 tabs 12/29/24 divalproex 250 mg tablet,extended 750 mg (3 x 250 mg) PO BID #180 12/29/24 release 24 hr tabs escitalopram oxalate 10 mg tablet 10 mg PO DAILY #30 t abs 12/29/24 fluticasone furoate 200 1 ea inhalation DAILY #1 inh aler 12/29/24 mcg-vilanterol 25 mcg/dose inhalation powder (Breo Ellipta) fluticasone propionate 50 2 spray intranasal DAILY #1 inhaler 12/29/24 mcg/actuation nasal spray,suspension hydroxyzine HCl 50 mg tablet 50 mg PO TID PRN Anxiety #90 tabs 12/29/24 insulin glargine 100 unit/mL (3 10 unit (0.1 mL) subcu t BEDTIME 12/29/24 mL) subcutaneous pen, sensor #15 mL insulin lispro 100 unit/mL 1 sliding scale dose subcut 12/29/24 subcutaneous pen (Admelog SoloStar USEASDIRECTD #15 mL U-100 Insulin lispro) metformin 500 mg tablet,extended 500 mg PO BID #60 tab s 12/29/24 release 24 hr metronidazole 500 mg tablet 500 mg PO BID #4 tabs 12/20 pregabalin 150 mg capsule 150 mg PO TID #90 caps 12/29 quetiapine 300 mg tablet 600 mg (2 x 300 mg) PO BEDTI ME #60 12/29/24 tabs tiotropium bromide 2.5 2 puff inhalation DAILY #1 i nhaler 12/29/24 mcg/actuation mist for inhalation (Spiriva Respimat) tramadol 50 mg tablet 50 mg PO TID PRN Pain (Scale Score 12/29/24 4-6) #30 tabs trazodone 50 mg tablet 50 mg PO BEDTIME #30 tabs Data Data Completed and Pending Completed studies during hospitalization [Text1]: 12/23/24 12/24/24 12/25/24 18:00 08:23 08:33 WBC RBC Hgb Hct MCV MCH MCHC RDW Plt Count MPV Immature Gran % (Auto) Neut % (Auto) Lymph % (Auto) Mobile % (Auto) Eos % (Auto) Baso % (Auto) Lymph # (Auto) Mobile # (Auto) Eos # (Auto) Baso # (Auto) Abs Immat Gran (auto) Absolute Neuts (auto) Absolute Nucleated RBC Nucleated RBC % (auto) Smear Tech's Comments ESR Sodium Potassium Chloride Carbon Dioxide Anion Gap BUN Creatinine Estim Creat Clear Calc Estimated GFR POC Glucose 260 H 271 H Random Glucose Calcium Total Bilirubin AST ALT Alkaline Phosphatase C-Reactive Protein Total Protein Albumin Urine Color Urine Appearance Urine pH Ur Specific [place] Urine Protein Urine Glucose (UA) Urine Ketones Urine Blood Urine Nitrite Ur Leukocyte Esterase Urine RBC Urine WBC Ur Squamous Epith Cells Urine Bacteria Hyaline Casts Valproic Acid T. vaginalis (PCR) NOT DETECTED Bact vaginosis (PCR) POSITIVE A C. krusei/glabrata (PCR) NOT DETECTED Nelda group (PCR) NOT DETECTED 12/25/24 12/26/24 12/26/24 21:34 07:36 07:44 WBC RBC Hgb Hct MCV MCH MCHC RDW Plt Count MPV Immature Gran % (Auto) Neut % (Auto) Lymph % (Auto) Mobile % (Auto) Eos % (Auto) Baso % (Auto) Lymph # (Auto) Mobile # (Auto) Eos # (Auto) Baso # (Auto) Abs Immat Gran (auto) Absolute Neuts (auto) Absolute Nucleated RBC Nucleated RBC % (auto) Smear Tech's Comments ESR Sodium Potassium Chloride Carbon Dioxide Anion Gap BUN Creatinine 0.77 Estim Creat Clear Calc 120.6 Estimated GFR > 60 POC Glucose 327 H 275 H Random Glucose Calcium Total Bilirubin AST ALT Alkaline Phosphatase C-Reactive Protein Total Protein Albumin Urine Color Urine Appearance Urine pH Ur Specific [place] Urine Protein Urine Glucose (UA) Urine Ketones Urine Blood Urine Nitrite Ur Leukocyte Esterase Urine RBC Urine WBC Ur Squamous Epith Cells Urine Bacteria Hyaline Casts Valproic Acid T. vaginalis (PCR) Bact vaginosis (PCR) C. krusei/glabrata (PCR) Nelda group (PCR) 12/26/24 12/26/24 12/26/24 19:45 20:20 21:00 WBC 4.6 L RBC 3.68 L Hgb 10.4 L Hct 31.7 L MCV 86.1 MCH 28.3 MCHC 32.8 RDW 17.4 H Plt Count 300 D MPV 9.6 Immature Gran % (Auto) 0.2 Neut % (Auto) 45.6 Lymph % (Auto) 44.3 H Mobile % (Auto) 8.4 Eos % (Auto) 1.1 Baso % (Auto) 0.4 Lymph # (Auto) 2.1 Mobile # (Auto) 0.4 Eos # (Auto) 0.1 Baso # (Auto) 0.0 Abs Immat Gran (auto) 0.01 Absolute Neuts (auto) 2.1 Absolute Nucleated RBC 0.000 Nucleated RBC % (auto) 0.0 Smear Tech's Comments ESR 12 Sodium 134 L Potassium 4.4 Chloride 102 Carbon Dioxide 19 L Anion Gap 17 BUN 8 L Creatinine 0.92 Estim Creat Clear Calc 101.0 Estimated GFR > 60 POC Glucose 479 H* Random Glucose 472 H* Calcium 8.7 Total Bilirubin 0.1 AST 24 ALT 39 H Alkaline Phosphatase 196 H C-Reactive Protein 0.80 H Total Protein 7.4 Albumin 4.0 Urine Color Yellow Urine Appearance Clear Urine pH 5.5 Ur Specific [place] >= 1.030 H Urine Protein Negative Urine Glucose (UA) >=1000 H Urine Ketones Trace Urine Blood Negative Urine Nitrite Negative Ur Leukocyte Esterase Negative Urine RBC 0-2 Urine WBC 0-5 Ur Squamous Epith Cells 0-2 Urine Bacteria None Seen Hyaline Casts 3-5 Valproic Acid T. vaginalis (PCR) Bact vaginosis (PCR) C. krusei/glabrata (PCR) Nelda group (PCR) 12/26/24 12/27/24 12/27/24 22:22 08:14 08:15 WBC RBC Hgb Hct MCV MCH MCHC RDW Plt Count MPV Immature Gran % (Auto) Neut % (Auto) Lymph % (Auto) Mobile % (Auto) Eos % (Auto) Baso % (Auto) Lymph # (Auto) Mobile # (Auto) Eos # (Auto) Baso # (Auto) Abs Immat Gran (auto) Absolute Neuts (auto) Absolute Nucleated RBC Nucleated RBC % (auto) Smear Tech's Comments ESR Sodium 137 Potassium 4.1 Chloride 106 Carbon Dioxide 24 Anion Gap 11 L BUN 6 L Creatinine 0.71 Estim Creat Clear Calc 130.8 Estimated GFR > 60 POC Glucose 310 H 215 H Random Glucose 208 H Calcium 8.3 L Total Bilirubin AST ALT Alkaline Phosphatase C-Reactive Protein Total Protein Albumin Urine Color Urine Appearance Urine pH Ur Specific [place] Urine Protein Urine Glucose (UA) Urine Ketones Urine Blood Urine Nitrite Ur Leukocyte Esterase Urine RBC Urine WBC Ur Squamous Epith Cells Urine Bacteria Hyaline Casts Valproic Acid T. vaginalis (PCR) Bact vaginosis (PCR) C. krusei/glabrata (PCR) Nelda group (PCR) 12/27/24 12/27/24 12/27/24 12:15 17:05 21:03 WBC RBC Hgb Hct MCV MCH MCHC RDW Plt Count MPV Immature Gran % (Auto) Neut % (Auto) Lymph % (Auto) Mobile % (Auto) Eos % (Auto) Baso % (Auto) Lymph # (Auto) Mobile # (Auto) Eos # (Auto) Baso # (Auto) Abs Immat Gran (auto) Absolute Neuts (auto) Absolute Nucleated RBC Nucleated RBC % (auto) Smear Tech's Comments ESR Sodium Potassium Chloride Carbon Dioxide Anion Gap BUN Creatinine Estim Creat Clear Calc Estimated GFR POC Glucose 254 H 255 H 243 H Random Glucose Calcium Total Bilirubin AST ALT Alkaline Phosphatase C-Reactive Protein Total Protein Albumin Urine Color Urine Appearance Urine pH Ur Specific [place] Urine Protein Urine Glucose (UA) Urine Ketones Urine Blood Urine Nitrite Ur Leukocyte Esterase Urine RBC Urine WBC Ur Squamous Epith Cells Urine Bacteria Hyaline Casts Valproic Acid T. vaginalis (PCR) Bact vaginosis (PCR) C. krusei/glabrata (PCR) Nelda group (PCR) 12/28/24 12/28/24 12/28/24 08:19 16:58 21:11 WBC RBC Hgb Hct MCV MCH MCHC RDW Plt Count MPV Immature Gran % (Auto) Neut % (Auto) Lymph % (Auto) Mobile % (Auto) Eos % (Auto) Baso % (Auto) Lymph # (Auto) Mobile # (Auto) Eos # (Auto) Baso # (Auto) Abs Immat Gran (auto) Absolute Neuts (auto) Absolute Nucleated RBC Nucleated RBC % (auto) Smear Tech's Comments ESR Sodium Potassium Chloride Carbon Dioxide Anion Gap BUN Creatinine Estim Creat Clear Calc Estimated GFR POC Glucose 148 H 380 H* 461 H* Random Glucose Calcium Total Bilirubin AST ALT Alkaline Phosphatase C-Reactive Protein Total Protein Albumin Urine Color Urine Appearance Urine pH Ur Specific [place] Urine Protein Urine Glucose (UA) Urine Ketones Urine Blood Urine Nitrite Ur Leukocyte Esterase Urine RBC Urine WBC Ur Squamous Epith Cells Urine Bacteria Hyaline Casts Valproic Acid T. vaginalis (PCR) Bact vaginosis (PCR) C. krusei/glabrata (PCR) Nelda group (PCR) 12/29/24 12/29/24 12/29/24 08:21 12:20 17:06 WBC RBC Hgb Hct MCV MCH MCHC RDW Plt Count MPV Immature Gran % (Auto) Neut % (Auto) Lymph % (Auto) Mobile % (Auto) Eos % (Auto) Baso % (Auto) Lymph # (Auto) Mobile # (Auto) Eos # (Auto) Baso # (Auto) Abs Immat Gran (auto) Absolute Neuts (auto) Absolute Nucleated RBC Nucleated RBC % (auto) Smear Tech's Comments ESR Sodium Potassium Chloride Carbon Dioxide Anion Gap BUN Creatinine Estim Creat Clear Calc Estimated GFR POC Glucose 152 H 289 H 277 H Random Glucose Calcium Total Bilirubin AST ALT Alkaline Phosphatase C-Reactive Protein Total Protein Albumin Urine Color Urine Appearance Urine pH Ur Specific [place] Urine Protein Urine Glucose (UA) Urine Ketones Urine Blood Urine Nitrite Ur Leukocyte Esterase Urine RBC Urine WBC Ur Squamous Epith Cells Urine Bacteria Hyaline Casts Valproic Acid T. vaginalis (PCR) Bact vaginosis (PCR) C. krusei/glabrata (PCR) Nelda group (PCR) 12/29/24 12/30/24 12/30/24 21:21 07:19 07:56 WBC 4.7 L RBC 3.62 L Hgb 10.0 L Hct 30.8 L MCV 85.1 MCH 27.6 MCHC 32.5 RDW 17.2 H Plt Count 309 MPV 9.8 Immature Gran % (Auto) 0.2 Neut % (Auto) 36.3 L Lymph % (Auto) 54.1 H [place] % (Auto) 7.7 Eos % (Auto) 1.3 Baso % (Auto) 0.4 Lymph # (Auto) 2.5 Mobile # (Auto) 0.4 Eos # (Auto) 0.1 Baso # (Auto) 0.0 Abs Immat Gran (auto) 0.01 Absolute Neuts (auto) 1.7 L Absolute Nucleated RBC 0.000 Nucleated RBC % (auto) 0.0 Smear Tech's Comments VERIFIED ESR Sodium 138 Potassium 4.2 Chloride 104 Carbon Dioxide 26 Anion Gap 12 BUN 7 L Creatinine 0.80 Estim Creat Clear Calc 117.1 Estimated GFR > 60 POC Glucose 249 H 159 H Random Glucose 158 H Calcium 9.1 D Total Bilirubin 0.3 AST 21 ALT 27 Alkaline Phosphatase 113 C-Reactive Protein Total Protein 6.8 Albumin 3.8 Urine Color Urine Appearance Urine pH Ur Specific [place] Urine Protein Urine Glucose (UA) Urine Ketones Urine Blood Urine Nitrite Ur Leukocyte Esterase Urine RBC Urine WBC Ur Squamous Epith Cells Urine Bacteria Hyaline Casts Valproic Acid 82.4 T. vaginalis (PCR) Bact vaginosis (PCR) C. krusei/glabrata (PCR) Nelda group (PCR) DS: Summary Time Spent with Patient Time attestation: Total time managing care of this patient today ____ minutes. Discharge Plan Discharge Anticipated Discharge Date/Time: 12/30/24 12:00 Patient Disposition: Xfer Inpatient Rehab Fac Discharge Diagnosis: Schizoaffective Disorder Polysubstance use disorder, in remission Referrals: Vivina Proctor [Other] - 12/30/24 11:00 am Referral Note: Due to arrive by 11am today. 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 Dr. Mendez Psychiatry [Other] - 1 Week Referral Note: Plan to see Dr. Wray while you are at [facility]. [facility] [Other] - 1 Week Referral Note: Follow up with your therapist as needed - Physician,Unknown J [Primary Care Provider, Medical] - 1 Week Discharge Medications: New acetaminophen 325 mg Tablet 650 mg PO BID PRN (Reason: Pain (Scale Score 1-3)) Qty: 120 0RF atorvastatin 20 mg Tablet 20 mg PO BEDTIME Qty: 30 0RF quetiapine 300 mg Tablet 600 mg PO BEDTIME Qty: 60 0RF hydroxyzine HCl 50 mg Tablet 50 mg PO TID PRN (Reason: Anxiety) Qty: 90 0RF clonidine HCl 0.2 mg Tablet 0.2 mg PO TID PRN (Reason: Anxiety) Qty: 90 0RF Protocol: Hold for SBP< HOLD for SBP < : 90 baclofen 10 mg Tablet 10 mg PO TID PRN (Reason: Muscle Spasm) Qty: 90 0RF albuterol sulfate [Ventolin HFA] 90 mcg/actuation Hfa Aerosol Inhaler 2 puff inhalation RQ4H PRN (Reason: wheeze) Qty: 1 0RF escitalopram oxalate 10 mg Tablet 10 mg PO DAILY Qty: 30 0RF divalproex 250 mg Tablet Extended Release 24 Hr 750 mg PO BID Qty: 180 0RF metformin 500 mg Tablet Extended Release 24 Hr 500 mg PO BID Qty: 60 0RF metronidazole 500 mg tablet 500 mg PO BID Qty: 4 0RF insulin glargine 100 unit/mL (3 mL) insulin pen, sensor 10 unit subcut BEDTIME Qty: 15 0RF insulin lispro [Admelog SoloStar U-100 Insulin] 100 unit/mL insulin pen 1 sliding scale dose subcut USEASDIRECTD Qty: 15 0RF (DME) blood-glucose meter [Advanced All-in-One Meter] Kit See Rx Instructions .Route Qty: 1 0RF Rx Instructions: As directed Continued trazodone 50 mg tablet 50 mg PO BEDTIME Qty: 30 0RF tramadol 50 mg tablet 50 mg PO TID PRN (Reason: Pain (Scale Score 4-6)) Qty: 30 2RF buspirone 30 mg tablet 15 mg PO TID Qty: 45 0RF fluticasone propionate 50 mcg/actuation spray,suspension 2 spray intranasal DAILY Qty: 1 0RF pregabalin 150 mg capsule 150 mg PO TID Qty: 90 0RF Spiriva Respimat 2.5 mcg/actuation mist 2 puff inhalation DAILY Qty: 1 0RF fluticasone furoate-vilanterol [Breo Ellipta] 200-25 mcg/dose blister with device 1 ea inhalation DAILY Qty: 1 0RF Discontinued hydroxyzine HCl 25 mg tablet 50 mg PO TID PRN (Reason: Anxiety) metformin 500 mg tablet extended release 24 hr 1,000 mg PO BIDWM quetiapine 200 mg tablet 600 mg PO BEDTIME acetaminophen [Pain Reliever (acetaminophen)] 500 mg tablet 500 mg PO BID PRN (Reason: Pain (Scale Score 1-3)) divalproex 500 mg tablet extended release 24 hr 500 mg PO BID escitalopram oxalate 5 mg tablet 10 mg PO DAILY clonidine HCl 0.2 mg tablet 0.1 mg PO TID PRN (Reason: Anxiety) baclofen 5 mg tablet 5 mg PO TID PRN (Reason: Muscle Spasm) Discharge Orders: Discharge Order (Routine); Ordered 12/30/24 Ordered By: Dannielle Bennett Diet: Advance to usual diet Activity on Discharge: As tolerated Stand Alone Forms: Patient Portal Discharge page, Community Support Print Language: [place] Sudanese Care Plan Goals: Continued abstinence from substances Mood and Behavioral Stabilization Health Concerns: Continued abstinence from substances Mood and Behavioral Stabilization Plan of Treatment: Attend scheduled appointments Take medications as directed Assessment: Denies SI,HI,AH,VH. No sx of acute fabiola or psychosis Agrees with plan of care
--- NOTE | 2025-01-02 07:59 | PC.NURSE ---
Patient was given Tramadol 75 mg po as a prn at 2109, December 27 2024 for c/o tooth pain 01/29.
== END 2024-12-30 10:50 | DRG 750 ==
LOC: HO.ED 12:26 → HO.PM5 12-19 14:09
PROVIDERS: Nurse Practitioner Family; Nurse Practitioner Psychiatric/Mental Health; Physician Assistant; Psychiatry & Neurology Psychiatry; Admitting Provider Clinical Nurse Specialist Psychiatric/Mental Health, Adult; Emergency Provider Emergency Medicine; Visit Provider Clinical Nurse Specialist Psychiatric/Mental Health, Adult
DX: F25.9 Schizoaffective disorder, unspecified (principal); R45.850 Homicidal ideations; F17.210 Nicotine dependence, cigarettes, uncomplicated; F19.11 Other psychoactive substance abuse, in remission; Z71.6 Tobacco abuse counseling; Z91.52 Personal history of nonsuicidal self-harm; Z79.51 Long term (current) use of inhaled steroids; Z79.84 Long term (current) use of oral hypoglycemic drugs; Z79.899 Other long term (current) drug therapy
CPT/HCPCS: 36415; 80048; 80053; 80061; 80143; 80164; 80179; 80307; 81001; 81003; 81025; 81515; 82565; 82607; 82746; 82947; 83036; 83735; 84439; 84443; 85025; 85652; 86140; 93005; 99285; S9485

== ENCOUNTER → 2024-12-17 11:49 | Outpatient (BNV) | payer OTHER, SELFPAY | PROVIDERS: Emergency Provider Emergency Medicine; Visit Provider Internal Medicine | DX: Z13.6 Encounter for screening for cardiovascular disorders (principal) | CPT/HCPCS: 93010 ==

== ENCOUNTER → 2024-12-19 13:53 | Outpatient (BNV) | payer OTHER, SELFPAY | PROVIDERS: Admitting Provider Clinical Nurse Specialist Psychiatric/Mental Health, Adult; Emergency Provider Emergency Medicine; Visit Provider Nurse Practitioner Psychiatric/Mental Health | DX: F25.1 Schizoaffective disorder, depressive type (principal); F19.11 Other psychoactive substance abuse, in remission | CPT/HCPCS: 99231; 99232 ==

== ENCOUNTER 2025-02-03 10:54 | Emergency (ER) | payer OTHER, SELFPAY ==
[2025-02-03 10:59] VITALS: BP 130/60; PULSE 98; RESP 18; TEMP 36.6; O2SAT 98; BMI 35.9
[2025-02-03 11:16] LABS: Hematocrit 35.3 % (37.0-47.0); Hemoglobin 11.4 g/dl (12.0-16.0); Imm Gran Abs Auto 0.02 X10*3/uL (0.00-0.03); Imm Gran Pct Auto 0.3 % (0.0-0.4); Lymphocytes Absolute Auto 4.1 X10*3/uL (1.2-4.9); MANUAL DIFF FLAG SCAN; Mean Corpuscular HGB Conc 32.3 g/dl (31.0-35.0); Mean Corpuscular Hemoglobin 27.5 pg (27.0-33.0); Mean Corpuscular Volume 85.1 fL (80.0-98.0); NRBC Abs Auto 0.000 X10*3/uL (0.0-0.012); NRBC Pct Auto 0.0 /100WBC (0.0-0.2); Platelet Count 604 X10*3/uL (160-400); Red Blood Count 4.15 X10*6/uL (4.20-5.50); SCAN SMEAR FLAG 1; White Blood Count 6.7 X10*3/uL (4.8-10.8)
--- OUTSIDE RECORDS SUMMARY | 2025-02-03 11:21 | XMS_ITS | Clinical Summary ---
Author Organization [facility] Address [address] [id number] Care Team Providers Care Meteorology Professor Name Role Phone Patient, Has No Pcp Or Ref Primary Care Provider Unavailable Allergies Active Allergy Reactions Criticality Noted Date Comments Aspirin Other (see comments) 07/17/2024 Exacerbated asthma Pineapple Anaphylaxis High 07/17/2024 Social History Tobacco Use Types Packs/Day Years Used Date Smoking Tobacco: Every Day Cigarettes Smokeless Tobacco: Never Tobacco Cessation:Ready to Q uit: Not Asked; Counseling Given: Not Answered Alcohol Use Standard Drinks/Week Comments Yes 0 (1 standard drink = 0.6 oz pure alcohol) Daily alcohol use, but reported last use May 24, 2024 Comments Unknown Sex and Gender Information Value Date Recorded Sex Assigned at Female 06/20/2024 8:36 PM EST Legal Sex Female 5:28 PM EST Gender Identity Not on file Sexual Orientation Not on file Last Filed Vital Signs Vital Sign Reading Time Taken Comments Blood Pressure 105/63 07/18/2024 9:57 AM EST Pulse 98 07/18/2024 9:57 AM EST Temperature 36.6 C (97.9 F) 07/18/2024 7:14 AM EST Respiratory Rate 17 07/18/2024 9:57 AM EST Oxygen Saturation 97% 07/18/2024 9:57 AM EST Inhaled Oxygen Concentration - - Weight - - Height - - Body Mass Index - - Plan of Treatment Health Maintenance Due Date Last Done Comments Basic Metabolic Panel 1989 Cervical Cancer Screening 1989 HIV Screening 1989 HPV and Pap Smear 1989 Hemoglobin A1C 1989 Hepatitis C Screening 1989 Pap Smear 1989 Ophthalmology Exam 1999 Urine Microalbumin 1999 Varicella Vaccines (1 of 2 - 13+ 2-dose series) 2002 Hepatitis B Vaccines (1 of 3 - 19+ 3-dose series) 07/24 Pneumococcal Vaccine: Pediat asa (0-5 Years) and At-Risk Patients (6-50 Years) (1 of 2 - PCV) 2008 DTaP,Tdap,and Td Vaccines (1 - Tdap) 2011 COVID-19 Vaccine (1 - 2023- season) 2024 Alcohol/Substance Use Screening 06/22/2024 Depression Screening and Follow-Up 06/22/2024 Social Drivers of Health Annual Screening 06/22/2024 Influenza Vaccine (#1) 2025 RSV Vaccine (60+ years old a nd patients) (1 - 1-dose 75+ series) 2064 Insurance MEDICAID Care Teams Meteorology Professor Relationship Specialty Start Date End Date Patient, Has No Pcp Or Ref DO NOT EDIT THIS RECORD VIA PROVIDER ON THE FLY PCP - General Welder 2Nd Shift 06/20/24
--- OUTSIDE RECORDS SUMMARY | 2025-02-03 11:21 | XMS_ITS | Encounter Summary ---
Author Organization [facility] Address [address] [place] [address] Care Team Providers Care Supply Chain Procurement Manager Name Role Phone Kanchan Gastelum Primary Care Provider [phone] Encounter Details Date Type Department Care Team (Late st Contact Info) Description 07/22/2024 Lab Requisition [facility] - Main Lab [address] [place] [address] [place] [phone] Social History Tobacco Use Types Packs/Day Years [...] on filedocumented in this encounter Care Teams Supply Chain Procurement Manager Relationship Specialty Start Date End Date Kanchan Gastelum [address] [place] [address] PCP - General Family Medicine 07/22/24 documented as of this encounter
--- OUTSIDE RECORDS SUMMARY | 2025-02-03 11:21 | XMS_ITS | Patient Health Record ---
Author Organization [facility] Address [address], [place] [id number] Care Team Providers Care Fertilizer Loader Name Role Phone NO, PCP Primary Care Provider Kari Ahmadi Unavailable [phone] Reason For Referral No Information Social History Sex Assigned At : Social History Observation Description Sex Assigned At Female Encounters Encounter Location Date Provider Diagnosis [address] [id number] 02/19/2024 Kari Ahmadi Plan Of Treatment No Information Insurance Providers Payer Name Payer Address Payer Phone Subscriber Number Group Number Insured Name Patient Relationship to Insured Coverage Start Date Coverage End Date [place] [address] [place] [address] [id number] Nina Lara Self - patient is the insured 5
[2025-02-03 11:33] LABS: Alanine Aminotransferase 39 U/L (0-31); Albumin Level 4.3 g/dL (3.5-5.0); Alkaline Phosphatase 97 U/L (39-117); Anion Gap 15 (12-20); Aspartate Amino Transferase 29 U/L (5-31); Blood Urea Nitrogen 14 mg/dL (9-16); Calcium 9.2 mg/dL (8.4-10.2); Carbon Dioxide 23 mmol/L (22-29); Chloride 106 mmol/L (96-108); Creatinine Clr Calc Pharmacy 102.2; Estimated Glomerular Filt Rate > 60; Lipase 25 U/L (8-78); Potassium 3.9 mmol/L (3.3-5.1); Sodium 140 mmol/L (135-145); Total Protein 7.5 g/dL (6.5-8.0)
--- NOTE | 2025-02-03 13:42 | ED.ABDPAIN ---
HPI - Abdominal Pain General Chief Complaint: Abdominal Pain Stated Complaint: pt states might have stomach bug Related Data Previous Rx's ?Medication ?Instructions ?Recorded acetaminophen 325 mg tablet 650 mg (2 x 325 mg) PO BID PRN 12/29/24 Pain (Scale Score 1-3) #120 tabs albuterol sulfate 90 mcg/actuation 2 puff inhalation RQ4H PRN wheeze 12/29/24 aerosol inhaler (Ventolin HFA) #1 inhaler atorvastatin 20 mg tablet 20 mg PO BEDTIME #30 tabs 12/29/24 baclofen 10 mg tablet 10 mg PO TID PRN Muscle Spasm #90 12/29/24 tabs blood-glucose meter (Advanced #1 ea 12/29/24 All-in-One Glucose Meter kit) buspirone 30 mg tablet 15 mg (1/2 x 30 mg) PO TID #45 tabs 12/29/24 clonidine HCl 0.2 mg tablet 0.2 mg PO TID PRN Anxiety #90 tabs 12/29/24 divalproex 250 mg tablet,extended 750 mg (3 x 250 mg) PO BID #180 12/29/24 release 24 hr tabs escitalopram oxalate 10 mg tablet 10 mg PO DAILY #30 tabs 12/29/24 fluticasone furoate 200 1 ea inhalation DAILY #1 inhaler 12/29/24 mcg-vilanterol 25 mcg/dose inhalation powder (Breo Ellipta) fluticasone propionate 50 2 spray intranasal DAILY #1 inhaler 12/29/24 mcg/actuation nasal spray,suspension hydroxyzine HCl 50 mg tablet 50 mg PO TID PRN Anxiety #90 tabs 12/29/24 insulin glargine 100 unit/mL (3 10 unit (0.1 mL) subcut BEDTIME 12/29/24 mL) subcutaneous pen, sensor #15 mL insulin lispro 100 unit/mL 1 sliding scale dose subcut 12/29/24 subcutaneous pen (Admelog SoloStar USEASDIRECTD #15 mL U-100 Insulin lispro) metformin 500 mg tablet,extended 500 mg PO BID #60 tabs 12/29/24 release 24 hr metronidazole 500 mg tablet 500 mg PO BID #4 tabs 12/29/24 pregabalin 150 mg capsule 150 mg PO TID #90 caps 12/29/24 quetiapine 300 mg tablet 600 mg (2 x 300 mg) PO BEDTIME #60 12/29/24 tabs tiotropium bromide 2.5 2 puff inhalation DAILY #1 inhaler 12/29/24 mcg/actuation mist for inhalation (Spiriva Respimat) tramadol 50 mg tablet 50 mg PO TID PRN Pain (Scale Score 12/29/24 4-6) #30 tabs trazodone 50 mg tablet 50 mg PO BEDTIME #30 tabs 12/29/24 metronidazole 500 mg tablet 500 mg PO BID #14 tabs 01/05/25 Allergies Allergy/AdvReac Type Severity Reaction Status Date / Time pineapple Allergy Unknown Verified 02/03/25 11:01 aspirin AdvReac Severe Anaphylaxis Verified 02/03/25 11:01 [facility] Social History Social History Household Members: Other Household Members Other:: Pt living in residential house. Housing: House Do you presently have visiting nurse or other home services: No Alcohol intake: current Patient Tobacco Use Status: Current someday Tobacco user Tobacco use type: Cigarette Cigarettes Per Day: 3 Years Smoked: 15 e-Cigarette/Vaping Use: Never Used Second Hand Smoke Exposure: No Advance Directives: No Advance Directives Information Provided: No Do you have a plan to hurt others: No Plan service: No Sexual orientation: Unable to collect Physical Exam ED Vital Signs: Vital Signs - 24 hr 02/03/25 10:59 Temperature 98 F Pulse Rate 98 Respiratory Rate 18 Blood Pressure 130/60 Pulse Oximetry 98 Oxygen Delivery Method Room Air BMI result Body Mass Index 35.9 Course Course Course Narrative: This is rapid medical exam. Deferred additional HPI, ROS, PE to primary provider. 34 yo female with PMH of DM, HLD, asthma, schizoaffective disorder here with nausea/vomiting/diarrhea/abdominal pain x 2 days. Patient has been triaged before my arrival and came to the triage desk with concern that her sugar is low. BS in triage is 116. She feels she needs a sandwich and states she is feeling improved. I offered her crackers and a michael raymon but she refused this and is quite vehemently demanding a sandwich. Her labs are unremarkable. We will attempt a PO trial. Will add urine testing, viral testing. S Medical Decision Making Lab Data 02/03/25 11:10 02/03/25 11:10 Labs: Lab Results 02/03/25 02/03/25 Range/Units 11:10 13:44 WBC 6.7 (4.8-10.8) X10*3/uL RBC 4.15 L (4.20-5.50) X10*6/uL Hgb 11.4 L (12.0-16.0) g/dl Hct 35.3 L (37.0-47.0) % MCV 85.1 (80.0-98.0) fL MCH 27.5 (27.0-33.0) pg MCHC 32.3 (31.0-35.0) g/dl RDW 18.4 H (11.0-16.0) % Plt Count 604 H D (160-400) X10*3/uL MPV 9.1 L (9.4-12.3) fL Immature Gran % (Auto) 0.3 (0.0-0.4) % Neut % (Auto) 28.9 L (45-73) % Lymph % (Auto) 60.6 H (20-40) % [place] % (Auto) 8.1 (2-11) % Eos % (Auto) 1.5 (0-4) % Baso % (Auto) 0.6 (0-2) % Lymph # (Auto) 4.1 (1.2-4.9) X10*3/uL [place] # (Auto) 0.5 (0.1-1.2) X10*3/uL Eos # (Auto) 0.1 (0.0-0.4) X10*3/uL Baso # (Auto) 0.0 (0.0-0.2) X10*3/uL Abs Immat Gran (auto) 0.02 (0.00-0.03) X10*3/uL Absolute Neuts (auto) 1.9 L (2.0-8.3) x10*3/uL Absolute Nucleated RBC 0.000 (0.0-0.012) X10*3/uL Nucleated RBC % (auto) 0.0 (0.0-0.2) /100WBC Smear Tech's Comments VERIFIED Sodium 140 (135-145) mmol/L Potassium 3.9 (3.3-5.1) mmol/L Chloride 106 (96-108) mmol/L Carbon Dioxide 23 (22-29) mmol/L Anion Gap 15 (12-20) BUN 14 (9-16) mg/dL Creatinine 0.89 (0.5-1.4) mg/dL Estim Creat Clear Calc 102.2 Estimated GFR > 60 POC Glucose 116 H (60-115) mg/dL Random Glucose 145 H (60-115) mg/dL Calcium 9.2 (8.4-10.2) mg/dL Total Bilirubin 0.2 (0.0-1.0) mg/dL Direct Bilirubin < 0.2 (0.0-0.5) mg/dL AST 29 (5-31) U/L ALT 39 H (0-31) U/L Alkaline Phosphatase 97 (39-117) U/L Total Protein 7.5 (6.5-8.0) g/dL Albumin 4.3 (3.5-5.0) g/dL Lipase 25 (8-78) U/L Discharge Plan Discharge Clinical Impression: Abdominal pain Patient Disposition: Left W/O Completing Treatment Prescriptions: No Action acetaminophen 325 mg Tablet 650 mg PO BID PRN (Reason: Pain (Scale Score 1-3)) Qty: 120 0RF atorvastatin 20 mg Tablet 20 mg PO BEDTIME Qty: 30 0RF quetiapine 300 mg Tablet 600 mg PO BEDTIME Qty: 60 0RF hydroxyzine HCl 50 mg Tablet 50 mg PO TID PRN (Reason: Anxiety) Qty: 90 0RF clonidine HCl 0.2 mg Tablet 0.2 mg PO TID PRN (Reason: Anxiety) Qty: 90 0RF Protocol: Hold for SBP< HOLD for SBP < : 90 baclofen 10 mg Tablet 10 mg PO TID PRN (Reason: Muscle Spasm) Qty: 90 0RF albuterol sulfate [Ventolin HFA] 90 mcg/actuation Hfa Aerosol Inhaler 2 puff inhalation RQ4H PRN (Reason: wheeze) Qty: 1 0RF escitalopram oxalate 10 mg Tablet 10 mg PO DAILY Qty: 30 0RF divalproex 250 mg Tablet Extended Release 24 Hr 750 mg PO BID Qty: 180 0RF metformin 500 mg Tablet Extended Release 24 Hr 500 mg PO BID Qty: 60 0RF trazodone 50 mg tablet 50 mg PO BEDTIME Qty: 30 0RF tramadol 50 mg tablet 50 mg PO TID PRN (Reason: Pain (Scale Score 4-6)) Qty: 30 2RF buspirone 30 mg tablet 15 mg PO TID Qty: 45 0RF fluticasone propionate 50 mcg/actuation spray,suspension 2 spray intranasal DAILY Qty: 1 0RF pregabalin 150 mg capsule 150 mg PO TID Qty: 90 0RF Spiriva Respimat 2.5 mcg/actuation mist 2 puff inhalation DAILY Qty: 1 0RF fluticasone furoate-vilanterol [Breo Ellipta] 200-25 mcg/dose blister with device 1 ea inhalation DAILY Qty: 1 0RF metronidazole 500 mg tablet 500 mg PO BID Qty: 4 0RF insulin glargine 100 unit/mL (3 mL) insulin pen, sensor 10 unit subcut BEDTIME Qty: 15 0RF insulin lispro [Admelog SoloStar U-100 Insulin] 100 unit/mL insulin pen 1 sliding scale dose subcut USEASDIRECTD Qty: 15 0RF (DME) blood-glucose meter [Advanced All-in-One Meter] Kit See Rx Instructions .Route Qty: 1 0RF Rx Instructions: As directed metronidazole 500 mg tablet 500 mg PO BID Qty: 14 0RF Discharge Date/Time: 02/03/25 15:01
[2025-02-03 13:51] LABS: Glucose, Whole Blood 116 mg/dL (60-115)
--- NOTE | 2025-02-03 13:57 | PC.NURSE ---
pt states she is a diabetic and needs to eat, poc checked and wnl. Tala [employer] and this RN tried to explain that eating a chicken salad sandwich was not the best choice with her current medical complaints, crackers and juice or michael raymon recommended but pt insists that she eat something with protein. pt adamant and becoming agitated with our suggestions, chicken salad sandwich and apple juice provided
== END 2025-02-03 15:01 | disposition left against medical advice (07) ==
PROVIDERS: Emergency Provider Emergency Medicine
DX: R10.9 Unspecified abdominal pain (principal); Z53.21 Procedure and treatment not carried out due to patient leaving prior to being seen by health care provider
CPT/HCPCS: 36415; 80048; 80076; 82947; 83690; 85025; 99281; 99283